=== PATIENT | female | born 1930 | race Caucasian/White ===

== ENCOUNTER 2017-08-02 13:19 | Inpatient (IN) | payer MEDICARE, BC ==
[2017-08-02] VITALS (7 sets, daily range): BP systolic 128–151; BP diastolic 61–80; PULSE 63–86; RESP 12–22; TEMP 97.6–98.5; O2SAT 95–99
[~2017-08-02] VITALS: Ht 170.2 cm; Wt 87.7 kg
--- NOTE | 2017-08-02 13:34 | PD ---
HPI Chief Complaint: Fall, altered mental status Time Seen by Provider: 13:29 Travel History International Travel<30 days: No Contact w/Intl Traveler<30days: No Traveled to known affect area: No History of Present Illness HPI 87-year-old elderly female currently living with her in an assisted care facility, here because she apparently had fallen between the toilet, and appears disoriented. It is unclear how long she was down. She currently is not able to give me much further history. Modifying Factors: None Associated Signs & Symptoms: Fall, altered mental status Risk Factors: Elderly PFSH Social History Tobacco Use: No Allergies-Medications (Allergen,Severity, Reaction): Coded Allergies: No Known Allergies (Unverified , 08/02/17) Reported Meds & Prescriptions Reported Meds & Active Scripts Active Reported Robitussin Cough Chest Congestion (Dextromethorphan-Guaifenesin) 10-200 Mg Cap 1 Cap PO Q6H PRN Mucinex DM (Dextromethorphan-Guaifenesin) 30-600 Mg Tab 1 Tab PO BID PRN Augmentin (Amoxicillin-Clavulanate) 500-125 mg Tab 500 Mg PO BID Macrobid (Nitrofurantoin Monoh/Nitrofur Macro) 100 Mg Cap 100 Mg PO BID Trazodone (Trazodone HCl) 50 Mg Tab 50 Mg PO HS Potassium Chloride ER (Potassium Chloride) 10 Meq Cap 10 Meq PO DAILY Lyrica (Pregabalin) 75 Mg Cap 75 Mg PO BID Losartan (Losartan Potassium) 100 Mg Tab 100 Mg PO DAILY Furosemide 20 Mg Tab 20 Mg PO DAILY Aspirin 81 Mg Chew 81 Mg CHEW DAILY Review of Systems ROS Limitations: Altered Mental Status Physical Exam Narrative GENERAL: Well-developed elderly white female patient currently in mild distress. Awake and oriented 3. SKIN: Focused skin assessment warm/dry. HEAD: Atraumatic. Normocephalic. EYES: Pupils equal and round. No scleral icterus. No injection or drainage. ENT: No nasal bleeding or discharge. Mucous membranes pink and moist. NECK: Trachea midline. No JVD. Supple. CARDIOVASCULAR: Regular rate and rhythm. No murmur appreciated. RESPIRATORY: No accessory muscle use. Clear to auscultation. Breath sounds equal bilaterally. GASTROINTESTINAL: Abdomen soft, non-tender, nondistended. Hepatic and splenic margins not palpable. Pelvis: Stable and nontender to palpation. EXTREMITIES: No clubbing, cyanosis, or edema. No joint tenderness, effusion, or edema noted. Left knee is flexed over pillow, nontender to palpation MUSCULOSKELETAL: No obvious deformities. No clubbing. No cyanosis. No edema. NEUROLOGICAL: Awake and alert. No obvious cranial nerve deficits. Motor grossly within normal limits. Normal speech. PSYCHIATRIC: Awake and not oriented. Insight and judgment poor. Data Data Last Documented VS Vital Signs Date Time Temp Pulse Resp B/P (MAP) Pulse Ox O2 Delivery O2 Flow Rate FiO2 08/02/17 15:05 86 12 144/75 (98) 98 Room Air 08/02/17 13:47 98.5 Orders Orders Electrocardiogram (08/02/17 13:29) Ammonia (08/02/17 13:29) Complete Blood Count With Diff (08/02/17 13:29) Comprehensive Metabolic Panel (08/02/17 13:29) Creatine Kinase (Cpk) (08/02/17 13:29) Prothrombin Time / Inr (Pt) (08/02/17 13:29) Act Partial Throm Time (Ptt) (08/02/17 13:29) Troponin I (08/02/17 13:29) Thyroid Stimulating Hormone (08/02/17 13:29) Urinalysis - C+S If Indicated (08/02/17 13:29) Lactic Acid Sepsis Protocol (08/02/17 13:29) Blood Culture (08/02/17 13:29) Chest, Single Ap (08/02/17 13:29) Ct Brain W/O Iv Contrast(Rout) (08/02/17 13:29) Blood Glucose (08/02/17 13:29) Ecg Monitoring (08/02/17 13:29) Iv Access Insert/Monitor (08/02/17 13:29) Oximetry (08/02/17 13:29) Pelvis, Ap Only (Routine) (08/02/17 13:29) Knee, Ltd (1 Or 2vws) (08/02/17 13:29) Aspirin (Aspirin) (08/02/17 15:15) Aspirin Supp (Aspirin Supp) (08/02/17 15:45) Admit Order (Ed Use Only) (08/02/17 15:47) Labs Laboratory Tests Test 08/02/17 13:55 08/02/17 14:05 08/02/17 15:18 White Blood Count 6.0 TH/MM3 Red Blood Count 4.03 MIL/MM3 Hemoglobin 12.5 GM/DL Hematocrit 37.8 % Mean Corpuscular Volume 93.9 FL Mean Corpuscular Hemoglobin 31.1 PG Mean Corpuscular Hemoglobin Concent 33.1 % Red Cell Distribution Width 13.4 % Platelet Count 203 TH/MM3 Mean Platelet Volume 9.5 FL Neutrophils (%) (Auto) 63.5 % Lymphocytes (%) (Auto) 27.5 % Monocytes (%) (Auto) 6.8 % Eosinophils (%) (Auto) 1.7 % Basophils (%) (Auto) 0.5 % Neutrophils # (Auto) 3.8 TH/MM3 Lymphocytes # (Auto) 1.7 TH/MM3 Monocytes # (Auto) 0.4 TH/MM3 Eosinophils # (Auto) 0.1 TH/MM3 Basophils # (Auto) 0.0 TH/MM3 CBC Comment DIFF FINAL Differential Comment Urine Color YELLOW Urine Turbidity CLEAR Urine pH 6.0 Urine Specific [place] 1.006 Urine Protein NEG mg/dL Urine Glucose (UA) NEG mg/dL Urine Ketones NEG mg/dL Urine Occult Blood NEG Urine Nitrite NEG Urine Bilirubin NEG Urine Urobilinogen LESS THAN 2.0 MG/DL Urine Leukocyte Esterase NEG Urine RBC LESS THAN 1 /hpf Urine WBC LESS THAN 1 /hpf Microscopic Urinalysis Comment CATH-CULT NOT IND Blood Urea Nitrogen 22 MG/DL Creatinine 1.19 MG/DL Random Glucose 85 MG/DL Total Protein 8.0 GM/DL Albumin 3.7 GM/DL Calcium Level 9.5 MG/DL Alkaline Phosphatase 84 U/L Aspartate Amino Transf (AST/SGOT) 30 U/L Alanine Aminotransferase (ALT/SGPT) 57 U/L Total Bilirubin 0.6 MG/DL Sodium Level 138 MEQ/L Potassium Level 4.4 MEQ/L Chloride Level 106 MEQ/L Carbon Dioxide Level 24.7 MEQ/L Anion Gap 7 MEQ/L Estimat Glomerular Filtration Rate 43 ML/MIN Total Creatine Kinase 69 U/L Troponin I 0.14 NG/ML Thyroid Stimulating Hormone 3rd Gen 1.200 uIU/ML Lactic Acid Level 1.8 mmol/L Ammonia 24 MCMOL/L [facility] Medical Decision Making Medical Screen Exam Complete: Yes Emergency Medical Condition: Yes Medical Record Reviewed: Yes Interpretation(s) EKG shows NSR, no ST elevation or depression, and no arrhythmias. No significant T-wave inversions. There is a notable first-degree AV block. Laboratory Tests Test 08/02/17 13:55 08/02/17 14:05 08/02/17 15:18 Blood Urea Nitrogen 22 MG/DL (7-18) Creatinine 1.19 MG/DL (0.50-1.00) Alanine Aminotransferase (ALT/SGPT) 57 U/L (10-53) Estimat Glomerular Filtration Rate 43 ML/MIN (>89) Troponin I 0.14 NG/ML (0.02-0.05) Last 24 hours Impressions Pelvis X-Ray 08/02/171328 Signed Impressions: Service Date/Time: July 14:41 - CONCLUSION: No acute disease. Kristopher Go MD Knee X-Ray 08/02/171328 Signed Impressions: Service Date/Time: July 14:44 - CONCLUSION: Advanced arthropathy without evidence of acute fracture or joint effusion. Kristopher Go MD Head CT 08/02/171328 Signed Impressions: Service Date/Time: July 14:18 - CONCLUSION: Small wedge-shaped hypodensity in the right parietal lobe which may represent acute to subacute infarct. No evidence of acute hemorrhage or edema. Otherwise normal exam. Kristopher Go MD Chest X-Ray 08/02/179 Signed Impressions: Service Date/Time: July 14:52 - CONCLUSION: Vascular congestion in central interstitial prominence Akil Goldsmith MD Differential Diagnosis Fall, altered mental status: Metabolic issues versus dehydration versus sepsis versus acute intracranial injuries Narrative Course CAT scan shows signs of a acute right parietal ischemia. Aspirin was given to her [place]. It is very difficult to do a good neurological exam because she is not following commands. Lab work otherwise shows mildly elevated troponin. At this point, my plan would be to admit her for further evaluation and treatment. Case was discussed with Dr. Mckinley for admission. Diagnosis Primary Impression: Altered mental status Additional Impressions: CVA (cerebral vascular accident) Elevated troponin Admitting Information Admitting Physician Requests: Admit Scotty Christina MD Aug 02, 2017 13:34
[2017-08-02] MEDS ORDERED: FURO20TA PO (13:44)
[2017-08-02] MEDS ORDERED: LOSA100T PO (13:44)
[2017-08-02] MEDS ORDERED: POTA10CA PO (13:44)
[2017-08-02] MEDS ORDERED: ASPI-516 CHEW (13:44)
[2017-08-02] MEDS ORDERED: TRAZ50TA12 PO (13:44)
[2017-08-02] MEDS ORDERED: LYRI75CA PO (13:44)
[2017-08-02] MEDS ORDERED: DEXT1CAP5 PO (13:59)
[2017-08-02] MEDS ORDERED: AUGM500T7 PO (13:59)
[2017-08-02] MEDS ORDERED: MACR100C2 PO (13:59)
[2017-08-02] MEDS ORDERED: HUMIBIDDM PO (13:59)
[2017-08-02 14:31] LABS: AUTOMATED NEUTROPHIL # 3.8 TH/MM3 (1.8-7.7); BASOPHIL % 0.5 % (0.0-2.0); EOSINOPHIL # 0.1 TH/MM3 (0-0.4); EOSINOPHIL % 1.7 % (0.0-4.0); HEMATOCRIT 37.8 % (35.0-46.0); HEMOGLOBIN 12.5 GM/DL (11.6-15.3); LYMPH % 27.5 % (9.0-44.0); LYMPHOCYTE # 1.7 TH/MM3 (1.0-4.8); MEAN CELL VOLUME 93.9 FL (80.0-100.0); MEAN CORPUSCULAR HEMOGLOBIN 31.1 PG (27.0-34.0); MEAN CORPUSCULAR HGB CONC 33.1 % (32.0-36.0); MEAN PLATELET VOLUME 9.5 FL (7.0-11.0); MONO % 6.8 % (0.0-8.0); MONOCYTE # 0.4 TH/MM3 (0-0.9); NEUT % 63.5 % (16.0-70.0); PLATELET COUNT 203 TH/MM3 (150-450); RED BLOOD COUNT 4.03 MIL/MM3 (4.00-5.30); RED CELL DISTRIBUTION WIDTH 13.4 % (11.6-17.2)
[2017-08-02 14:32] LABS: BILIRUBIN, URINE NEG (NEG); BLOOD, URINE NEG (NEG); GLUCOSE,URINE NEG (NEG); KETONE, URINE NEG (NEG); NITRITE,URINE NEG (NEG); URINE COLOR YELLOW (YELLW/STRAW); URINE LEUKOCYTE ESTERASE NEG (NEG)
--- NOTE | 2017-08-02 14:44 | RADRPT ---
EXAM DATE/TIME: 08/02/2017 14:18 [facility] COMPARISON: No previous studies available for comparison. INDICATIONS : Found on floor with altered mental status RADIATION DOSE: 32.21 CTDIvol (mGy) MEDICAL HISTORY : Hypertension. SURGICAL HISTORY : None. ENCOUNTER: Initial ACUITY: 1 day PAIN SCALE: Non-responsive LOCATION: cranial TECHNIQUE: Multiple contiguous axial images were obtained of the head. Using automated exposure control and adj ustment of the mA and/or kV according to patient size, radiation dose was kept as low as reasonably a chievable to obtain optimal diagnostic quality images. DICOM format image data is available electro nically for review and comparison. FINDINGS: CEREBRUM: A small wedge-shaped area of hypodensity is identified posteriorly in the right parietal lobe. The sc rew in his referral is unremarkable. There is no evidence of acute hemorrhage, edema or mass effect. POSTERIOR FOSSA: The cerebellum and brainstem are intact. The 4th ventricle is midline. The cerebellopontine angle i s unremarkable. EXTRACRANIAL: The visualized portion of the orbits is intact. SKULL: The calvaria is intact. No evidence of skull fracture. CONCLUSION: Small wedge-shaped hypodensity in the right parietal lobe which may represent acute to subacute infar ct. No evidence of acute hemorrhage or edema. Otherwise normal exam. Kristopher Go MD on August 02, 2017 at 14:39 Board Certified Radiologist. This report was verified electronically.
[2017-08-02 14:47] LABS: ALBUMIN 3.7 GM/DL (3.4-5.0); AST (GOT) 30 U/L (15-37); BICARBONATE 24.7 MEQ/L (21.0-32.0); BLOOD UREA NITROGEN 22 MG/DL (7-18); CALCIUM 9.5 MG/DL (8.5-10.1); CHLORIDE 106 MEQ/L (98-107); CREATININE 1.19 MG/DL (0.50-1.00); GLOMERULAR FILTRATION RATE 43 ML/MIN (>89); GLUCOSE,RANDOM 85 MG/DL (74-106); SODIUM (NA) 138 MEQ/L (136-145)
[2017-08-02 14:48] LABS: ALT (GPT) 57 U/L (10-53)
[2017-08-02 14:58] LABS: ALKALINE PHOSPHATASE 84 U/L (45-117); TOTAL BILIRUBIN ADULT 0.6 MG/DL (0.2-1.0); TROPONIN I 0.14 NG/ML (0.02-0.05)
--- NOTE | 2017-08-02 15:06 | RADRPT ---
EXAM DATE/TIME: 08/02/2017 14:52 [facility] COMPARISON: No previous studies available for comparison. INDICATIONS : Syncope. MEDICAL HISTORY : Hypertension. Arthritis. SURGICAL HISTORY : None. ENCOUNTER: Initial ACUITY: 1 day PAIN SCORE: 0/10 LOCATION: Bilateral chest FINDINGS: Central vascular congestion and interstitial prominence noted. No evidence of lobar consolidation or significant effusion. Heart size upper limits of normal with grossly satisfactory mediastinal contour s. CONCLUSION: Vascular congestion in central interstitial prominence Akil Goldsmith MD on August 02, 2017 at 15:03 Board Certified Radiologist. This report was verified electronically.
--- NOTE | 2017-08-02 15:07 | RADRPT ---
EXAM DATE/TIME: 08/02/2017 14:41 [facility] COMPARISON: No previous studies available for comparison. INDICATIONS : Pelvic pain post fall today. MEDICAL HISTORY : Hypertension. Arthritis. SURGICAL HISTORY : None. ENCOUNTER: Initial ACUITY: 1 day PAIN SCORE: 2/10 LOCATION: pelvis FINDINGS: A single frontal view of the pelvis demonstrates no evidence of fracture. The bony pelvic ring is in tact. Bony mineralization is normal. The soft tissues are intact. CONCLUSION: No acute disease. Kristopher Go MD on August 02, 2017 at 15:05 Board Certified Radiologist. This report was verified electronically.
--- NOTE | 2017-08-02 15:08 | RADRPT ---
EXAM DATE/TIME: 08/02/2017 14:44 [facility] COMPARISON: No previous studies available for comparison. INDICATIONS : Left knee pain after falling today. MEDICAL HISTORY : Hypertension. Arthritis. SURGICAL HISTORY : None. ENCOUNTER: Initial ACUITY: 1 day PAIN SCORE: 3/10 LOCATION: Left knee. FINDINGS: Severe 2 compartment arthropathy is noted. There is marked joint space narrowing, subchondral scleros is and marginal spurring involving the medial joint compartment and patellofemoral joint. There is sl ight varus deformity. There is no evidence of acute fracture or joint effusion. CONCLUSION: Advanced arthropathy without evidence of acute fracture or joint effusion. Kristopher Go MD on August 02, 2017 at 15:05 Board Certified Radiologist. This report was verified electronically.
[2017-08-02] MEDS ORDERED: ASPIRIN 325 MG TAB PO ONE (15:15)
[2017-08-02] MEDS ORDERED: ASPIRIN 300 MG SUPP RECTAL ONE (15:45)
[2017-08-02 15:58] LABS: INTERNATIONAL NORMALIZED RATIO 1.1 RATIO; PROTHROMBIN TIME - PATIENT 11.2 SEC (9.8-11.6)
[2017-08-02] MEDS ORDERED: GLUCAGON 1 MG/ML VIAL OTHER PRN (17:15)
[2017-08-02] MEDS ORDERED: ENALAPRILAT 1.25 MG/ML VIAL IV PUSH PRN (17:15)
[2017-08-02] MEDS ORDERED: DEXTROSE 50% IN WATER 50 ML VIAL(D50) IV PUSH PRN (17:15)
[2017-08-02] MEDS ORDERED: LABETALOL HCL 100 MG/20 ML VIAL IV PUSH PRN (17:15)
[2017-08-02] MEDS: HEPARIN SODIUM - SQ 10,000 UNITS/ML VIAL SQ SCH (17:23)
[2017-08-02] MEDS ORDERED: HEPARIN SODIUM - SQ 10,000 UNITS/ML VIAL SQ SCH (19:00)
[2017-08-02] MEDS ORDERED: MAGNESIUM HYDROXIDE SUSP 30 ML CUP PO PRN (19:00)
[2017-08-02] MEDS ORDERED: SENNOSIDES 8.6 MG TAB PO PRN (19:00)
[2017-08-02] MEDS ORDERED: NALOXONE HCL 0.4 MG/ML AMP IV PUSH PRN (19:00)
--- NOTE | 2017-08-02 19:47 | RADRPT ---
EXAM DATE/TIME: 08/02/2017 19:01 [facility] COMPARISON: No previous studies available for comparison. INDICATIONS : CVA. MEDICAL HISTORY : Hypertension. SURGICAL HISTORY : Total knee replacement, right. ENCOUNTER: Initial ACUITY: 1 day PAIN SCORE: 0/10 LOCATION: Head. TECHNIQUE: Multiplanar, multisequence MRI of the brain was performed without contrast. FINDINGS: There are acute right sided posterior infarcts measuring up to 2.7 x 1.1 cm in the right parieto-occi pital region and 3 cm x 1.4 cm in the right occipital lobe. No mass effect or shift. No definite hemo rrhage. No hydrocephalus. No abnormal extra-axial fluid. CONCLUSION: 1. 2 small infarcts in the right parieto-occipital region with measurements given above. No hemorrhag e or significant mass effect and mild white matter ischemic changes. Bharath Burns MD on August 02, 2017 at 19:42 Board Certified Radiologist. This report was verified electronically.
--- NOTE | 2017-08-02 19:55 | RADRPT ---
EXAM DATE/TIME: 08/02/2017 19:01 [facility] COMPARISON: No previous studies available for comparison. INDICATIONS : Stroke. MEDICAL HISTORY : Hypertension. SURGICAL HISTORY : Total knee replacement, right. ENCOUNTER: Initial ACUITY: 1 day PAIN SCORE: 0/10 LOCATION: Head. Please note a normal MRA of the brain does not entirely exclude the possibility of a small aneurysm, nor the possibility of distal intracranial vessel disease. TECHNIQUE: 3D time of flight MRA was performed. Source images, multiplanar STS MIP, and 3D volume MIP reconstru ctions were reviewed. FINDINGS: There is occlusion or high-grade stenosis of the distal right posterior cerebral artery. Exam is degr aded by motion artifact. There is flow in the anterior and middle cerebral arteries and left posterio r shoulder artery. Some flow is present in the distal internal carotid arteries and basilar artery al though also degraded by motion. CONCLUSION: 1. 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 Exam degraded by elliot batres. Bharath Burns MD on August 02, 2017 at 19:51 Board Certified Radiologist. This report was verified electronically.
[2017-08-02 20:20] LABS: TROPONIN I 1.55 NG/ML (0.02-0.05)
[2017-08-02] MEDS: INSULIN ASPART SUPPLEMENTAL SCALE SQ SCH (21:17)
--- NOTE | 2017-08-02 22:48 | RADRPT ---
EXAM DATE/TIME: 08/02/2017 22:09 [facility] COMPARISON: No previous studies available for comparison. INDICATIONS : Cerebrovascular accident. MEDICAL HISTORY : Hypertension. Arthritis. Carpal tunnel. SURGICAL HISTORY : Unable to obtain. ENCOUNTER: Initial ACUITY: 1 day PAIN SCORE: 0/10 LOCATION: Bilateral neck PEAK SYSTOLIC VELOCITIES (cm/sec): ICA/CCA RATIO: Right: 0.7 Left: 1.3 ICA: Right: 78 Left: 101 CCA: Right: 110 Left: 80 ECA: Right: 110 Left: 88 VERTEBRAL: Right: 42 antegrade Left: 44 antegrade Elevated flow velocities and ICA/CCA ratios have been found to correlate with increased degrees of vessel stenosis, calculated as percentage of diameter relative to a normal segment of distal ICA/CCA FINDINGS: RIGHT CAROTID: No significant stenosis is visualized. The waveforms are within normal limits. LEFT CAROTID: No significant stenosis is visualized. The waveforms are within normal limits. VERTEBRAL ARTERIES: Antegrade flow is seen in both vertebral arteries. MISCELLANEOUS: None. CONCLUSION: 1. Mild plaque without hemodynamically significant stenosis in the carotid arteries. Vertebral artery flow antegrade. Bharath Burns MD on August 02, 2017 at 22:46 Board Certified Radiologist. This report was verified electronically.
[2017-08-02] MEDS: DOCUSATE SODIUM 50 MG/SENNA 8.6 MG TAB PO SCH (22:50)
[2017-08-03 00:29] LABS: TROPONIN I 1.69 NG/ML (0.02-0.05)
[2017-08-03 00:45] VITALS: BP 151/70; PULSE 69; RESP 17; TEMP 98.4; O2SAT 97
[2017-08-03] MEDS: HEPARIN SODIUM - SQ 10,000 UNITS/ML VIAL SQ SCH (01:15)
[2017-08-03] MEDS ORDERED: HEPARIN SODIUM - IV 10,000 UNITS/10 ML VIAL IV PUSH ONE (01:45)
[2017-08-03] MEDS ORDERED: HEPARIN-D5W 25,000 U/250 ML 250 ML IV PRN (01:45)
--- NOTE | 2017-08-03 03:46 | HHI.HP ---
[facility] Primary Care Physician Unknown Admission Diagnosis Acute stroke/altered mental status/elevated troponin Diagnoses: Travel History International Travel<30 Days: No Contact w/Intl Traveler <30 Da: No Traveled to Known Affected Are: No History of Present Illness History from ER physician notes, and review of medical records. And nursing staff at the bedside. Patient is extremely poor historian. She answered yes to pretty much all the review of system. She initially told her nurse on medical floors that she was having pain in her head. Later when I ask her about this, she denies any pain. She then told me that she was having pain in her abdomen. However later she changed her mind and she states she is not sure. According to ER notes, patient and her lives at an assisted living facility. She had a fall and was looking disoriented. They were not sure how long she was down on the floor. Patient also is not following commands and neuro exam was extremely limited in ER. However further imaging workup done in ER revealed small wedge-shaped hypodensity in the right parietal lobe which may represent acute to subacute infarct. Patient was therefore admitted for workup of CVA. In the emergency room, patient also had mild elevation of troponin. Review of Systems ROS Limitations: Altered Mental Status, Poor Historian Past Family Social History Past Medical History Per EMR: Hypertension Arthritis Carpal tunnel syndrome Past Surgical History None per EMR Allergies: Coded Allergies: No Known Allergies (Unverified , 08/02/17) Family History Unknown Social History denies smoking/ etoh abuse/ drug abuse Physical Exam Vital Signs Vital Signs Date Time Temp Pulse Resp B/P (MAP) Pulse Ox O2 Delivery O2 Flow Rate FiO2 08/03/17 00:45 98.4 69 17 151/70 (97) 97 08/02/17 21:46 98 21 08/02/17 20:50 97.6 79 17 141/80 (100) 97 08/02/17 17:57 08/02/17 17:13 98 21 08/02/17 17:00 80 14 131/69 (89) 98 Room Air 08/02/17 16:00 84 22 151/63 (92) 99 Room Air 08/02/17 15:05 86 12 144/75 (98) 98 Room Air 08/02/17 13:47 98.5 63 16 128/61 (83) 95 Physical Exam GENERAL: This is a well-nourished, well-developed patient, in no apparent distress. That at times moaning saying she has pain at different places. SKIN: No rashes, ecchymoses or lesions. Cool and dry. HEAD: Atraumatic. Normocephalic. No temporal or scalp tenderness. EYES: Pupils equal round and reactive. Extraocular motions intact. No scleral icterus. No injection or drainage. ENT: Nose without bleeding, purulent drainage or septal hematoma. Airway patent. NECK: Trachea midline. No JVD . Supple, nontender, no meningeal signs. CARDIOVASCULAR: Regular rate and rhythm without murmurs, gallops, or rubs. RESPIRATORY: Clear to auscultation. Breath sounds equal bilaterally. No wheezes , rales, or rhonchi. GASTROINTESTINAL: Abdomen soft, non-tender, nondistended. No guarding. MUSCULOSKELETAL: Extremities without clubbing, cyanosis, or edema. No calf tenderness. NEUROLOGICAL: Awake and alert. No tongue deviation. Left facial droop questionable this is chronic. Normal shoulder shrug though weak bilaterally.. Unable to assess her strength since patient does not really follow commands. Normal speech. Laboratory Laboratory Tests Test 08/02/17 13:55 08/02/17 14:05 08/02/17 15:18 08/02/17 18:00 White Blood Count 6.0 Red Blood Count 4.03 Hemoglobin 12.5 Hematocrit 37.8 Mean Corpuscular Volume 93.9 Mean Corpuscular Hemoglobin 31.1 Mean Corpuscular Hemoglobin Concent 33.1 Red Cell Distribution Width 13.4 Platelet Count 203 Mean Platelet Volume 9.5 Neutrophils (%) (Auto) 63.5 Lymphocytes (%) (Auto) 27.5 Monocytes (%) (Auto) 6.8 Eosinophils (%) (Auto) 1.7 Basophils (%) (Auto) 0.5 Neutrophils # (Auto) 3.8 Lymphocytes # (Auto) 1.7 Monocytes # (Auto) 0.4 Eosinophils # (Auto) 0.1 Basophils # (Auto) 0.0 CBC Comment DIFF FINAL Differential Comment Urine Color YELLOW Urine Turbidity CLEAR Urine pH 6.0 Urine Specific [place] 1.006 Urine Protein NEG Urine Glucose (UA) NEG Urine Ketones NEG Urine Occult Blood NEG Urine Nitrite NEG Urine Bilirubin NEG Urine Urobilinogen LESS THAN 2.0 Urine Leukocyte Esterase NEG Urine RBC LESS THAN 1 Urine WBC LESS THAN 1 Microscopic Urinalysis Comment CATH-CULT NOT IND Blood Urea Nitrogen 22 Creatinine 1.19 Random Glucose 85 Total Protein 8.0 Albumin 3.7 Calcium Level 9.5 Alkaline Phosphatase 84 Aspartate Amino Transf (AST/SGOT) 30 Alanine Aminotransferase (ALT/SGPT) 57 Total Bilirubin 0.6 Sodium Level 138 Potassium Level 4.4 Chloride Level 106 Carbon Dioxide Level 24.7 Anion Gap 7 Estimat Glomerular Filtration Rate 43 Total Creatine Kinase 69 122 Troponin I 0.14 1.55 Thyroid Stimulating Hormone 3rd Gen 1.200 Lactic Acid Level 1.8 Ammonia 24 Prothrombin Time 11.2 Prothromb Time International Ratio 1.1 Activated Partial Thromboplast Time 23.8 Test 08/02/17 23:32 Total Creatine Kinase 138 Troponin I 1.69 Date/Time Source Procedure Growth Status 08/02/17 14:05 Blood Peripheral Aerobic Blood Culture Pending Received 08/02/17 14:05 Blood Peripheral Anaerobic Blood Culture Pending Received Result Diagram: 08/02/17 1355 08/02/17 1355 Imaging Last 48 hours Impressions Pelvis X-Ray 08/02/17 1329 Signed Impressions: Service Date/Time: July 14:41 - CONCLUSION: No acute disease. Kristopher Go MD Knee X-Ray 08/02/17 1329 Signed Impressions: Service Date/Time: July 14:44 - CONCLUSION: Advanced arthropathy without evidence of acute fracture or joint effusion. Kristopher Go MD Head CT 08/02/17 1329 Signed Impressions: Service Date/Time: July 14:18 - CONCLUSION: Small wedge-shaped hypodensity in the right parietal lobe which may represent acute to subacute infarct. No evidence of acute hemorrhage or edema. Otherwise normal exam. Kristopher Go MD Chest X-Ray 08/02/17 1329 Signed Impressions: Service Date/Time: July 14:52 - CONCLUSION: Vascular congestion in central interstitial prominence Akil Goldsmith MD Head Magnetic Resonance Angiography 08/02/17 Signed Impressions: Service Date/Time: July 19:01 - CONCLUSION: 1. 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 Exam degraded by motion. Bharath Burns MD Carotid Artery Ultrasound 08/02/17 Signed Impressions: Service Date/Time: July 22:09 - CONCLUSION: 1. Mild plaque without hemodynamically significant stenosis in the carotid arteries. Vertebral artery flow antegrade. Bharath Burns MD Brain MRI 08/02/17 Signed Impressions: Service Date/Time: July 19:01 - CONCLUSION: 1. 2 small infarcts in the right parieto-occipital region with measurements given above. No hemorrhage or significant mass effect and mild white matter ischemic changes. MD Chana Cordero VTE Risk Assessment Caprini VTE Risk Assessment: Mod/High Risk (score >= 2) Caprini Risk Assessment Model Point Value = 1 Point Value = 2 Point Value = 3 Point Value = 5 Age 41-60 Minor surgery BMI > 25 kg/m2 Swollen legs Varicose veins or History of unexplained or recurrent spontaneous Oral contraceptives or hormone replacement Sepsis (< 1 month) Serious lung disease, including pneumonia (< 1 month) Abnormal pulmonary function Acute myocardial infarction Congestive heart failure (< 1 month) History of inflammatory bowel disease Medical patient at bed rest Age 61-74 Arthroscopic surgery Major open surgery (> 45 min) Laparoscopic surgery (> 45 min) Malignancy Confined to bed (> 72 hours) Immobilizing plaster cast Central venous access Age >= 75 History of VTE Family history of VTE Factor V Leiden Prothrombin [id number] Lupus anticoagulant Anticardiolipin antibodies Elevated serum homocysteine Heparin-induced thrombocytopenia Other congenital or acquired thrombophilia Stroke (< 1 month) Elective arthroplasty Hip, pelvis, or leg fracture Acute spinal cord injury (< 1 month) Prophylaxis Regimen Total Risk Factor Score Risk Level Prophylaxis Regimen 0-1 Low Early ambulation 2 Moderate Order ONE of the following: *Sequential Compression Device (SCD) *Heparin 5000 units SQ BID 3-4 Higher Order ONE of the following medications: *Heparin 5000 units SQ TID *Enoxaparin/Lovenox 40 mg SQ daily (WT < 150 kg, CrCl > 30 mL/min) *Enoxaparin/Lovenox 30 mg SQ daily (WT < 150 kg, CrCl > 10-29 mL/min) *Enoxaparin/Lovenox 30 mg SQ BID (WT < 150 kg, CrCl > 30 mL/min) AND/OR *Sequential Compression Device (SCD) 5 or more Highest Order ONE of the following medications: *Heparin 5000 units SQ TID (Preferred with Epidurals) *Enoxaparin/Lovenox 40 mg SQ daily (WT < 150 kg, CrCl > 30 mL/min) *Enoxaparin/Lovenox 30 mg SQ daily (WT < 150 kg, CrCl > 10-29 mL/min) *Enoxaparin/Lovenox 30 mg SQ BID (WT < 150 kg, CrCl > 30 mL/min) AND *Sequential Compression Device (SCD) Assessment and Plan Assessment and Plan Impression: CVA. Brain MRI showing 2 small infarcts in the right parieto-occipital region. No hemorrhage. No mass effect. Elevated troponin/non-ST elevation NE History of hypertension Plan: Permissive hypertension. Echocardiogram. Carotid sono. Personally reviewed. No hemodynamically significant stenosis. Head CT brain MRI personally reviewed. 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 Neurology consult. Aspirin 325 mg by mouth daily. Rehabilitation medicine consult. Speech and swallow evaluation. Start patient on heparin drip. Cardiology consult. DVT prophylaxis on heparin drip. Discussed Condition With Patient, her nurse Physician Certification 2 Midnight Certification Type: Admission for Inpatient Services Order for Inpatient Services The services are ordered in accordance with Medicare regulations or non- Medicare payer requirements, as applicable. In the case of services not specified as inpatient-only, they are appropriately provided as inpatient services in accordance with the 2-midnight benchmark. Estimated LOS (days): 3 days is the estimated time the patient will need to remain in the hospital, assuming treatment plan goals are met and no additional complications. Post-Hospital Plan: Not yet determined Elaine Reynoso MD Aug 03, 2017 03:46
[2017-08-03 04:54] VITALS: BP 148/77; PULSE 79; RESP 17; TEMP 98.6; O2SAT 97
[2017-08-03] MEDS: PANTOPRAZOLE SODIUM 40 MG VIAL IV PUSH SCH ×2 (05:23→16:40)
[2017-08-03 07:15] LABS: AUTOMATED NEUTROPHIL # 5.5 TH/MM3 (1.8-7.7); BASOPHIL % 0.5 % (0.0-2.0); EOSINOPHIL # 0.1 TH/MM3 (0-0.4); EOSINOPHIL % 0.8 % (0.0-4.0); HEMATOCRIT 36.4 % (35.0-46.0); HEMOGLOBIN 12.4 GM/DL (11.6-15.3); LYMPH % 23.1 % (9.0-44.0); LYMPHOCYTE # 1.9 TH/MM3 (1.0-4.8); MEAN CELL VOLUME 93.4 FL (80.0-100.0); MEAN CORPUSCULAR HEMOGLOBIN 31.8 PG (27.0-34.0); MEAN PLATELET VOLUME 9.6 FL (7.0-11.0); MONO % 7.3 % (0.0-8.0); MONOCYTE # 0.6 TH/MM3 (0-0.9); NEUT % 68.3 % (16.0-70.0); PLATELET COUNT 200 TH/MM3 (150-450); RED CELL DISTRIBUTION WIDTH 13.4 % (11.6-17.2); WHITE BLOOD COUNT 8.1 TH/MM3 (4.0-11.0)
[2017-08-03 07:39] LABS: BICARBONATE 23.2 MEQ/L (21.0-32.0); CALCIUM 9.2 MG/DL (8.5-10.1); CREATININE 1.01 MG/DL (0.50-1.00)
[2017-08-03 07:43] LABS: CHOLESTEROL/ HDL RATIO 2.56 RATIO; HDL CHOLESTEROL 47.1 MG/DL (40.0-60.0)
[2017-08-03] MEDS ORDERED: HEPARIN SODIUM - IV 10,000 UNITS/10 ML VIAL IV PUSH PRN ×2 (07:45)
[2017-08-03 08:00] LABS: TROPONIN I 1.56 NG/ML (0.02-0.05)
[2017-08-03] MEDS: INSULIN ASPART SUPPLEMENTAL SCALE SQ SCH ×4 (08:00→21:00)
[2017-08-03] MEDS ORDERED: NITROGLYCERIN 0.4 MG SL 25 TABS/BTL SL PRN (08:30)
[2017-08-03] MEDS ORDERED: MORPHINE SULFATE 4 MG/ML INJ IV PUSH PRN (08:30)
[2017-08-03 09:06] VITALS: BP 147/85; PULSE 74; RESP 16; TEMP 98; O2SAT 97
[2017-08-03] MEDS: DOCUSATE SODIUM 50 MG/SENNA 8.6 MG TAB PO SCH ×2 (10:11→21:00)
[2017-08-03] MEDS: ASPIRIN 325 MG TAB PO SCH (10:12)
--- NOTE | 2017-08-03 11:20 | PD.CONS ---
Consult Service Palliative Care Consult Requested By Dr. Reynoso Primary Care Physician Unknown Reason for Consultation a. To assist with evaluation and management of symptoms including: Pain, confusion b. To assist medical decision maker(s) with: better understanding of current medical conditions; weighing benefits/burdens of medical treatment options; making medical treatment decisions. HPI History of Present Illness This is an 87-year-old female residing at [facility] with her who suffered a fall at the facility. She had apparently fallen next to the toilet and had been down for an unknown period of time. The patient herself is not able to give history, she is confused and repeats words over and over. She says she does not feel well but denies headache, stomachache, musculoskeletal pain, nausea. She does state that her stomach is the source of her discomfort but states that it "gets her riled up". She denies pain to palpation and denies that she feels like she could vomit. She is oriented to self only, does not know where she is, why she is here nor have any idea of what month or year it might be. ED course: * Laboratory: WBC 6.0, hemoglobin 12.5, hematocrit 37.8, platelets 203, sodium 138, potassium 4.4, BUN 22, creatinine 1.19, random glucose 85, alkaline phosphatase 84, AST 30, ALT 57, total bilirubin 0.6, troponin 0 0.14, TSH 1.20, lactic acid 1.8, ammonia 24. Urinalysis is negative. * Radiology: Chest x-ray shows vascular congestion in central interstitial prominence. Head CT shows small wedge-shaped hypodensity in the right parietal lobe possibly representing acute to subacute infarct with no evidence of acute hemorrhage or edema. Knee x-ray shows advanced arthropathy without evidence of acute fracture or joint effusion. Pelvis x-ray no acute disease. * Electrocardiogram: Shows normal sinus rhythm with no significant ST changes. Subsequent troponin shows levels that increased from 0.14 to 1.55, 1.69, 1.56. Cholesterol panel shows total cholesterol 121, HDL 47.1, LDL 61, triglycerides 67. Brain MRI shows acute right-sided posterior infarcts measuring up to 2.7 x 1.1 cm in the right parieto-occipital region in 3 cm x 1.4 cm in the right occipital lobe with no mass-effect or shift, no definite hemorrhage no hydrocephalus and no abnormal extra-axial fluid. Carotid ultrasound shows mild plaque without hemodynamically significant stenosis in the carotid arteries and antegrade vertebral artery flow. MRA of the brain showed occlusion or high- grade stenosis of the right distal posterior cerebral artery. Degradation by motion artifact was noted. Positive flow in the anterior and middle cerebral arteries and left posterior shoulder artery. Some flow is present in the distal internal carotid arteries and basilar artery although also degraded by motion. Upon examination this is an well nourished, well developed, elderly female in soft wrist restraints, not responding to questions. She appears in mild distress but cannot identify a point of discomfort. When asked if she knew where she was she started to repeat syllables but was unable to answer the question. Right ear shows a small bruise with small amount of oozing blood in the auricle. Call placed to her daughter to obtain further information. Daughter informs me that she is on her way to coal picker her father and come to the hospital and will meet me here. . Function/Cognitive Trajectory She had previously been independent with ADLs to include managing her own money and writing checks. She was ambulatory with a walker but her daughter did note shuffling gait. She resides in an [facility] with her . This is an acute decline. . Review of Systems ROS Limitations: Clinical Condition (Patient is nonverbal and unable to provide their own ROS. 10 part ROS taken as best as possible from medical record and available family.), Altered Mental Status, Speech Impaired Constitutional: COMPLAINS OF: Generalized weakness Neurologic: COMPLAINS OF: Speech Problems (Expressive aphasia) Psychiatric: COMPLAINS OF: Confusion Past Family Social History Coded Allergies: No Known Allergies (Unverified , 08/02/17) Past Medical History Vertigo Hypertension Arthritis Carpal tunnel syndrome Chronic sinusitis . Past Surgical History None per EMR Reported Medications Reported Meds & Active Scripts Active Reported Robitussin Cough Chest Congestion (Dextromethorphan-Guaifenesin) 10-200 Mg Cap 1 Cap PO Q6H PRN Mucinex DM (Dextromethorphan-Guaifenesin) 30-600 Mg Tab 1 Tab PO BID PRN Augmentin (Amoxicillin-Clavulanate) 500-125 mg Tab 500 Mg PO BID Macrobid (Nitrofurantoin Monoh/Nitrofur Macro) 100 Mg Cap 100 Mg PO BID Trazodone (Trazodone HCl) 50 Mg Tab 50 Mg PO HS Potassium Chloride ER (Potassium Chloride) 10 Meq Cap 10 Meq PO DAILY Lyrica (Pregabalin) 75 Mg Cap 75 Mg PO BID Losartan (Losartan Potassium) 100 Mg Tab 100 Mg PO DAILY Furosemide 20 Mg Tab 20 Mg PO DAILY Aspirin 81 Mg Chew 81 Mg CHEW DAILY . Current Medications Medications (Trade) Dose Ordered Sig/Harlan Route Start Time Stop Time Status Last Admin (Vasotec Inj) 1.25 mg Q4H PRN IV PUSH 08/02/17 17:15 (Trandate Inj) 10 mg Q2H PRN IV PUSH 08/02/17 17:15 (Aspirin) 325 mg DAILY PO 08/03/17 09:00 08/03/17 10:12 (NovoLOG SUPPLEMENTAL SCALE) 1 ACHS SQ 08/02/17 21:00 (D50w (Vial) Inj) 50 ml UNSCH PRN IV PUSH 08/02/17 17:15 (Glucagon Inj) 1 mg UNSCH PRN OTHER 08/02/17 17:15 (Heparin Inj) 5,000 units Q8H SQ 08/02/17 17:15 Future Hold 08/02/17 17:23 (Tylenol) 650 mg Q4H PRN PO 08/02/17 19:00 (Zofran Inj) 4 mg Q6H PRN IVP 08/02/17 19:00 (Heparin Inj) 5,000 units Q8H SQ 08/02/17 19:00 Future Hold (Narcan Inj) 0.4 mg UNSCH PRN IV PUSH 08/02/17 19:00 (Nan-Colace) 1 tab BID PO 08/02/17 21:00 08/03/17 10:11 (Milk Of Magnesia Liq) 30 ml Q12H PRN PO 08/02/17 19:00 (Senokot) 17.2 mg Q12H PRN PO 08/02/17 19:00 (Heparin Inj) 5,000 units UNSCH PRN IV PUSH 08/03/17 07:45 (Heparin Inj) 2,500 units UNSCH PRN IV PUSH 08/03/17 07:45 Heparin Sodium/ Dextrose 250 ml @ 8 mls/hr TITRATE PRN IV 08/03/17 01:45 08/03/17 02:32 (Protonix Inj) 40 mg Q12H IV PUSH 08/03/17 06:00 08/03/17 05:23 (Nitrostat Sl) 0.4 mg Q5M PRN SL 08/03/17 08:30 (Morphine Inj) 1 mg Q30M PRN IV PUSH 08/03/17 08:30 . Family History Both parents had multiple CVAs. Mother in her 90's, dad in his 80s. Both were bedbound for some time before they . . Substance Use Tobacco: Never smoked. Alcohol: Never used alcohol. Prescription med abuse: No history. Illicits: No history. . Psychosocial History Born in [facility], 1 of 10 children. She finished school, and raised her children there. She has been to her for 70 years. 5 years ago they moved to [place] after many years of snowbirding between both [facility]. She and her currently live together in an [facility]. . Spiritual/Cultural Factors They are seventh day Hindu. . Living Will: Copy in medical record Health Care Surrogate: Copy in medical record Durable Power of Lgsw: Copy in medical record Health Care Surrogate(s): Their daughter, Brisa Newton is their healthcare surrogate and POA. . Documented care wishes: Standard Living Will verbiage. . Today's verbally stated goals: Patient is unable to state her goals. . Family/friends goals: Spoke with her daughter who is a nurse and the daughter's , who is a retired ED physician. Further conference was held with both of her brothers, Marin and Tobin and it was jointly decided that no aggressive interventions should be used. They have requested a DO NOT RESUSCITATE status. . Ethical and Legal Issues None noted. . Physical Exam Vital Signs Date Time Temp Pulse Resp B/P (MAP) Pulse Ox O2 Delivery O2 Flow Rate FiO2 08/03/17 04:54 98.6 79 17 148/77 (100) 97 08/03/17 00:45 98.4 69 17 151/70 (97) 97 08/02/17 21:46 98 21 08/02/17 20:50 97.6 79 17 141/80 (100) 97 08/02/17 17:57 08/02/17 17:13 98 21 08/02/17 17:00 80 14 131/69 (89) 98 Room Air 08/02/17 16:00 84 22 151/63 (92) 99 Room Air 08/02/17 15:05 86 12 144/75 (98) 98 Room Air 08/02/17 13:47 98.5 63 16 128/61 (83) 95 . Exam CONSTITUTIONAL/GENERAL: This is an adequately nourished patient, in no apparent distress. TUBES/LINES/DRAINS: PIV LFA SKIN: No jaundice, rashes, or lesions. Ecchymoses on upper extremities. No wounds seen anteriorly. Skin temperature appropriate. Not diaphoretic. HEAD: Atraumatic. Normocephalic. EYES: Pupils equal and round and reactive. Extraocular motions intact. No scleral icterus. No injection or drainage. Fundi not examined. ENT: Hearing grossly normal. Nose without bleeding or purulent drainage. Throat without visible erythema, exudates, masses, or lesions. Right ear with slight bruising and small laceration with minimal sanguinous drainage. NECK: Trachea midline. Supple, nontender. No palpable thyroid enlargement or nodularity. CARDIOVASCULAR: Regular rate and rhythm without murmurs, gallops, or rubs. No JVD. Peripheral pulses symmetric. RESPIRATORY/CHEST: Symmetric, unlabored respirations. Clear to auscultation. Breath sounds equal bilaterally. No wheezes, rales, or rhonchi. GASTROINTESTINAL: Abdomen soft, non-tender, nondistended. No hepato-splenomegaly , or palpable masses. No guarding. Bowel sounds present. GENITOURINARY: Without palpable bladder distension. MUSCULOSKELETAL: Extremities without clubbing, cyanosis, or edema. No joint tenderness or effusion noted. No calf tenderness. No mottling or clubbing. LYMPHATICS: No palpable cervical or supraclavicular adenopathy. NEUROLOGICAL: Awake and alert. Expressive aphasia, repeating syllables, word salad, unable to recall information given within the prior minute. PSYCHIATRIC: Anxious, cooperative. . Diagnostic Tests Laboratory Laboratory Tests Test 08/02/17 13:55 08/02/17 14:05 08/02/17 15:18 08/02/17 18:00 White Blood Count 6.0 TH/MM3 (4.0-11.0) Red Blood Count 4.03 MIL/MM3 (4.00-5.30) Hemoglobin 12.5 GM/DL (11.6-15.3) Hematocrit 37.8 % (35.0-46.0) Mean Corpuscular Volume 93.9 FL (80.0-100.0) Mean Corpuscular Hemoglobin 31.1 PG (27.0-34.0) Mean Corpuscular Hemoglobin Concent 33.1 % (32.0-36.0) Red Cell Distribution Width 13.4 % (11.6-17.2) Platelet Count 203 TH/MM3 (150-450) Mean Platelet Volume 9.5 FL (7.0-11.0) Neutrophils (%) (Auto) 63.5 % (16.0-70.0) Lymphocytes (%) (Auto) 27.5 % (9.0-44.0) Monocytes (%) (Auto) 6.8 % (0.0-8.0) Eosinophils (%) (Auto) 1.7 % (0.0-4.0) Basophils (%) (Auto) 0.5 % (0.0-2.0) Neutrophils # (Auto) 3.8 TH/MM3 (1.8-7.7) Lymphocytes # (Auto) 1.7 TH/MM3 (1.0-4.8) Monocytes # (Auto) 0.4 TH/MM3 (0-0.9) Eosinophils # (Auto) 0.1 TH/MM3 (0-0.4) Basophils # (Auto) 0.0 TH/MM3 (0-0.2) CBC Comment DIFF FINAL Differential Comment Urine Color YELLOW (YELLW/STRAW) Urine Turbidity CLEAR (CLEAR) Urine pH 6.0 (5.0-8.5) Urine Specific [place] 1.006 (1.002-1.035) Urine Protein NEG mg/dL (NEG-TRACE) Urine Glucose (UA) NEG mg/dL (NEG) Urine Ketones NEG mg/dL (NEG) Urine Occult Blood NEG (NEG) Urine Nitrite NEG (NEG) Urine Bilirubin NEG (NEG) Urine Urobilinogen LESS THAN 2.0 MG/DL (LESS Urine Leukocyte Esterase NEG (NEG) Urine RBC LESS THAN 1 /hpf (0-3) Urine WBC LESS THAN 1 /hpf (0-5) Microscopic Urinalysis Comment CATH-CULT NOT IND Blood Urea Nitrogen 22 MG/DL (7-18) Creatinine 1.19 MG/DL (0.50-1.00) Random Glucose 85 MG/DL (74-106) Total Protein 8.0 GM/DL (6.4-8.2) Albumin 3.7 GM/DL (3.4-5.0) Calcium Level 9.5 MG/DL (8.5-10.1) Alkaline Phosphatase 84 U/L (45-117) Aspartate Amino Transf (AST/SGOT) 30 U/L (15-37) Alanine Aminotransferase (ALT/SGPT) 57 U/L (10-53) Total Bilirubin 0.6 MG/DL (0.2-1.0) Sodium Level 138 MEQ/L (136-145) Potassium Level 4.4 MEQ/L (3.5-5.1) Chloride Level 106 MEQ/L (98-107) Carbon Dioxide Level 24.7 MEQ/L (21.0-32.0) Anion Gap 7 MEQ/L (5-15) Estimat Glomerular Filtration Rate 43 ML/MIN (>89) Total Creatine Kinase 69 U/L (26-192) 122 U/L (26-192) Troponin I 0.14 NG/ML (0.02-0.05) 1.55 NG/ML (0.02-0.05) Thyroid Stimulating Hormone 3rd Gen 1.200 uIU/ML (0.358-3.740) Lactic Acid Level 1.8 mmol/L (0.4-2.0) Ammonia 24 MCMOL/L (11-32) Prothrombin Time 11.2 SEC (9.8-11.6) Prothromb Time International Ratio 1.1 RATIO Activated Partial Thromboplast Time 23.8 SEC (24.3-30.1) Test 08/02/17 23:32 08/03/17 06:43 Total Creatine Kinase 138 U/L (26-192) 145 U/L (26-192) Troponin I 1.69 NG/ML (0.02-0.05) 1.56 NG/ML (0.02-0.05) White Blood Count 8.1 TH/MM3 (4.0-11.0) Red Blood Count 3.90 MIL/MM3 (4.00-5.30) Hemoglobin 12.4 GM/DL (11.6-15.3) Hematocrit 36.4 % (35.0-46.0) Mean Corpuscular Volume 93.4 FL (80.0-100.0) Mean Corpuscular Hemoglobin 31.8 PG (27.0-34.0) Mean Corpuscular Hemoglobin Concent 34.0 % (32.0-36.0) Red Cell Distribution Width 13.4 % (11.6-17.2) Platelet Count 200 TH/MM3 (150-450) Mean Platelet Volume 9.6 FL (7.0-11.0) Neutrophils (%) (Auto) 68.3 % (16.0-70.0) Lymphocytes (%) (Auto) 23.1 % (9.0-44.0) Monocytes (%) (Auto) 7.3 % (0.0-8.0) Eosinophils (%) (Auto) 0.8 % (0.0-4.0) Basophils (%) (Auto) 0.5 % (0.0-2.0) Neutrophils # (Auto) 5.5 TH/MM3 (1.8-7.7) Lymphocytes # (Auto) 1.9 TH/MM3 (1.0-4.8) Monocytes # (Auto) 0.6 TH/MM3 (0-0.9) Eosinophils # (Auto) 0.1 TH/MM3 (0-0.4) Basophils # (Auto) 0.0 TH/MM3 (0-0.2) CBC Comment DIFF FINAL Differential Comment Blood Urea Nitrogen 18 MG/DL (7-18) Creatinine 1.01 MG/DL (0.50-1.00) Random Glucose 103 MG/DL (74-106) Calcium Level 9.2 MG/DL (8.5-10.1) Sodium Level 139 MEQ/L (136-145) Potassium Level 4.0 MEQ/L (3.5-5.1) Chloride Level 107 MEQ/L (98-107) Carbon Dioxide Level 23.2 MEQ/L (21.0-32.0) Anion Gap 9 MEQ/L (5-15) Estimat Glomerular Filtration Rate 52 ML/MIN (>89) Triglycerides Level 67 MG/DL (42-150) Cholesterol Level 121 MG/DL (120-200) LDL Cholesterol 61 MG/DL (0-99) HDL Cholesterol 47.1 MG/DL (40.0-60.0) Cholesterol/HDL Ratio 2.56 RATIO Result Diagram: 08/03/17 0643 08/03/17 0643 Microbiology Microbiology Date/Time Source Procedure Growth Status 08/02/17 14:05 Blood Peripheral Aerobic Blood Culture Pending Received 08/02/17 14:05 Blood Peripheral Anaerobic Blood Culture Pending Received 08/02/17 14:00 Blood Peripheral Aerobic Blood Culture Pending Received 08/02/17 14:00 Blood Peripheral Anaerobic Blood Culture Pending Received Imaging Last Impressions Pelvis X-Ray 08/02/179 Signed Impressions: Service Date/Time: July 14:41 - CONCLUSION: No acute disease. Kristopher Go MD Knee X-Ray 08/02/171328 Signed Impressions: Service Date/Time: July 14:44 - CONCLUSION: Advanced arthropathy without evidence of acute fracture or joint effusion. Kristopher Go MD Head CT 08/02/171328 Signed Impressions: Service Date/Time: July 14:18 - CONCLUSION: Small wedge-shaped hypodensity in the right parietal lobe which may represent acute to subacute infarct. No evidence of acute hemorrhage or edema. Otherwise normal exam. Kristopher Go MD Chest X-Ray 08/02/171328 Signed Impressions: Service Date/Time: July 14:52 - CONCLUSION: Vascular congestion in central interstitial prominence Akil Goldsmith MD Head Magnetic Resonance Angiography 08/02/17 0000 Signed Impressions: Service Date/Time: July 19:01 - CONCLUSION: 1. 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 Exam degraded by motion. Bharath Burns MD Carotid Artery Ultrasound 08/02/17 0000 Signed Impressions: Service Date/Time: July 22:09 - CONCLUSION: 1. Mild plaque without hemodynamically significant stenosis in the carotid arteries. Vertebral artery flow antegrade. Bharath Burns MD Brain MRI 08/02/17 0000 Signed Impressions: Service Date/Time: July 19:01 - CONCLUSION: 1. 2 small infarcts in the right parieto-occipital region with measurements given above. No hemorrhage or significant mass effect and mild white matter ischemic changes. Bharath Burns MD . Patient/Family Conference Present at Family Conference: Spoke with daughter Brisa and her Dr. Paul Feirstad at length regarding past history both medical and psychosocial as well as trajectory of decline. Reviewed clinical course and radiology findings. Reviewed palliative care purpose and focus as well as the items listed below. Discussed possible placement options, as they feel the [facility] may not provide adequate support for their mother's current disabilities. They are firm in their wishes to keep their parents together in the same location. . Family Conference Time (mins): 45 Family Conference Location: Bedside Issues Discussed: * Palliative care role, purpose, approach * Additional medical, psychosocial, and spiritual history * Patients general health, functional status, and cognitive changes in the months leading up to the current hospitalization * Patient/family understanding of the current medical problems * Patient/family understanding of prognosis * Patients goals of care as best understood from advance directives and/or conversations and/or values * Current medical treatment options and benefits/burdens of those options * Likely scenarios comparing ongoing aggressive care with a transition to comfort measures only * Questions answered to the best of my ability * Palliative care contact information provided Assessment and Plan Disease Oriented Problem List: (1) CVA (cerebral vascular accident) (2) Elevated troponin (3) Altered mental status Symptom Scale: (1) Confusion 0-10 Scale: Unable to quantify (Status post CVA right posterior cerebral artery.) (2) Pain, generalized 0-10 Scale: Unable to quantify (Confused, unable to specify area of discomfort but complains of pain.) Pertinent Non-Medical Issues Psychosocial:Born in [facility], 1 of 10 children. She finished school, and raised her children there. She has been to her for 70 years. 5 years ago they moved to [place] after many years of snowbirding between both [facility]. She and her currently live together in an [facility] Spiritual: Seventh-day Hindu. Legal: Their daughter Brisa provided copies of the healthcare surrogate, living will and power of manager java. Ethical issues impacting care: None noted. . Important Contacts Daughter: Brisa Newton Son: Marin Guerrero Son: Tobin Yolanda Son-in-law: Dr. Paul Newton . Prognosis Her prognosis is guarded. 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 Cardiology has seen her and recommended stopping the heparin drip and continue with aspirin. No cardiac intervention is planned. 2D echocardiogram has been requested and is pending. She has passed her swallow evaluation but is having difficulties expressing her thoughts. It is unknown whether she is able to comprehend the question being asked or is simply unable to express her answer. Family is requesting a DO NOT RESUSCITATE status. Physical therapy is awaiting neuro consultation before attempting to get patient out of bed. She is currently wearing a Holter monitor but those results are not yet available. No further prognostication until test results are available. . Code Status: No Code Plan PLAN: Legal decision maker: Daughter Brisa is the healthcare surrogate and she is coordinating all decisions with her 2 brothers. Goals: Comfort oriented CODE STATUS: DNR SYMPTOMS: * Confusion: Consistent with her area of injury. Pending neurology consultation. She does have expressive aphasia and is having difficulty expressing answers and her thoughts. She is unable to retain information for any length of time. This is likely consistent with her stroke as she was not confused prior to this event. * Pain: She is complaining of discomfort but is unable to identify the source of the discomfort due to her underlying confusion. She does have morphine available 1 mg every 30 minutes as needed at this time has received none. She will need close clinical monitoring for signs and symptoms of pain and she is unable to make her needs known. SUMMARY This is an 87-year-old female brought to the ER from her [facility], where she resides with her , with new onset altered mental status and. She was found down and does appear to have some trauma to the right ear. No hemorrhage has been seen on CT at this time. Concomitantly she also shows evidence of a possible myocardial infarction with elevated troponin and 1 on a heparin drip, but that was stopped by cardiology and patient placed on an aspirin instead. Plan is for conservative management at this time. 2D echocardiogram has been requested and is pending. Further management will be determined after neurology consult and patient's clinical course. She is at significant risk for continued complications and decline. Palliative care will continue to follow the patient during hospital course as condition evolves, to assist patient/decision-maker with understanding of their medical conditions, weighing benefits/burdens of treatment options, for clarification of goals of treatment. Additionally will assist with any symptoms of palliative concern. . Time Spent Time Periods: 11: 15-12: 00 Total Floor Time (mins): 75 Face to Face Time (mins): 45 >50% Counseling/Coord of Care: Yes Thank you for the opportunity to participate in the care of Ms. Guerrero. Attestation To help prompt me to consider important information that might be impacting today's encounter and assessment, information from prior notes written by myself or my colleagues may have been "brought forward" into today's note. My signature on this note, however, is an attestation that I personally performed the exam, history, and/or decision-making noted today, and, unless otherwise indicated, the interactions with patient, family, and staff as well as the review of records all occurred today. I also attest that the listed assessment and stated plan reflect my best clinical judgment today based on the combination of historical information, prior notes, and today's exam/ interactions. When time spent is documented, it refers only to time spent today by the signer, or if indicated, combined time spent today by collaborating physician/nurse practitioner. . Payton Rae Aug 03, 2017 11:20 am
[2017-08-03] MEDS: ONDANSETRON HCL 4 MG/2 ML VIAL IVP PRN ×2 (12:15→18:19)
[2017-08-03 12:29] VITALS: BP 138/74; PULSE 76; RESP 18; TEMP 98.3; O2SAT 98
--- NOTE | 2017-08-03 15:07 | HHI.PR ---
Addendum to Inpatient Note Addendum Reason: Additional Documentation Additional Information Patient denies any pain. Currently, parcel post officer present trying to get blood work. No complaints at this time. RN at bedside, states he removed restraints and patient has been doing well since family has been around. at bedside Discussed the case w Dr. Suggs. He recommended stopping the heparin gtt and continuing w full dose ASA. Neurology consult pending. MRA shows occlusion/high grade stenosis of distal r post cerebral art Jelly Grover MD Aug 03, 2017 15:07
--- NOTE | 2017-08-03 15:32 | MB ---
cc: AYSHA CANCHOLA DATE OF CONSULTATION: 08/03/2017 REASON FOR CONSULTATION: Cardiology consultation. HISTORY OF PRESENT ILLNESS: 87-year-old white female with no previous cardiac history who was admitted with, confusion, headache, disorientation, she fell and was transferred to the emergency room. She has not had any chest pain or shortness of breath. She is confused. She was found to have mildly elevated troponin. She was diagnosed with acute infarct acute CVA. PAST MEDICAL HISTORY Positive for hypertension Carpal tunnel syndrome Arthritis. No history of dyslipidemia, diabetes mellitus, coronary disease. MEDICATIONS Include 1. Augmentin. 2. Macrobid 3. Losartan 4. Aspirin 5. Trazodone 6. potassium. 7. Furosemide 8. Mucinex. 9. Robitussin. ALLERGIES None. SOCIAL HISTORY The patient does not smoke. She does not drink alcohol. She is accompanied by her . FAMILY HISTORY Positive for heart disease in for stroke in her father. Systems is otherwise negative. PHYSICAL EXAMINATION VITAL SIGNS: Blood pressure 138/74, Pulse 96 and regular. HEAD, EYES, EARS, NOSE, AND THROAT: Negative. NECK: Carotid upstrokes and bruits. LUNGS: Clear. HEART: Regular rate, no murmur or gallop and soft bruits. EXTREMITIES: Without edema. NEUROLOGIC: Grossly nonfocal. RADIOLOGIC: EKG was reviewed and showed normal sinus rhythm with normal wall, first-degree AV block, otherwise normal axis and intervals, no acute changes. LABORATORY DATA Hemoglobin 12.4, potassium 4.0, creatinine 1.0, CK 122, 138, 145, troponin 1.55, 1.69 and 1.56, LDL 61, HDL 47. DIAGNOSIS: 1. Acute CVA 2. Mildly elevated troponin. 3. Altered mental status. 4. Hypertension. DISPOSITION Miss Guerrero will be monitored on telemetry. She is undergoing neurology evaluation. Her troponin is mildly elevated but is not trending in either direction. We will obtain echocardiogram to evaluate left ventricle function. I will follow her for cardiology during her hospitalization. MD EMILIA Bhatti/grant /2:53 PM /3:08 PM
[2017-08-03 16:00] VITALS: BP 134/75; PULSE 69; RESP 18; TEMP 98.5; O2SAT 95
[2017-08-03 18:24] LABS: HEMOGLOBIN A1C 5.8 % (4.3-6.0)
[2017-08-03] MEDS ORDERED: GLUCAGON 1 MG/ML VIAL OTHER PRN (18:30)
[2017-08-03] MEDS ORDERED: DEXTROSE 50% IN WATER 50 ML VIAL(D50) IV PUSH PRN (18:30)
[2017-08-03] MEDS ORDERED: SODIUM CHLORIDE 0.9% FLUSH 10 ML FLUSH IV FLUSH PRN (18:30)
--- NOTE | 2017-08-03 19:24 | MB ---
cc: RENEE WILEY M.D. DATE OF CONSULTATION: 08/03/2017. REASON FOR CONSULTATION: Stroke. HISTORY OF PRESENT ILLNESS: Ms. Guerrero is an 87-year-old woman who developed mental status change at the assisted-living facility with difficulty with her speech. She came to the hospital. She did not have a focal motor deficits but she had an MRI of the brain done which showed two small infarctions in the right parietooccipital region. PAST MEDICAL HISTORY: Her past medical history is remarkable for: 1. Hypertension. 2. Arthritis. 3. Carpal tunnel syndrome. MEDICATIONS AT THE RESIDENTIAL: 1. Robitussin. 2. Mucinex. 3. Augmentin. 4. Macrobid. 5. Trazodone. 6. Potassium chloride. 7. Lyrica. 8. Losartan. 9. Aspirin 81 milligrams daily. 10. Lasix. NEUROLOGIC EXAMINATION: VITAL SIGNS: Blood pressure is 134/75, pulse 69, respiratory rate is 18, temperature 98.5 degrees. HIGHER CORTICAL FUNCTIONS: Patient is alert and oriented x2. Follows commands. Speech is fluent at this time. CRANIAL NERVES: Cranial nerves normal. MOTOR: Motor exam reveals 5/5 strength of all groups. There is no drift. REFLEXES: Reflexes are symmetric. IMAGING STUDIES: CT scan of the brain shows small wedge-shaped hyperdensity in the right parietal lobe consistent with probable stroke. MRI of the brain shows two small infarcts in the right parietooccipital area. No hemorrhage. 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 Carotid ultrasound shows mild plaquing. No significant stenosis is seen. EKGS: EKG shows normal sinus rhythm, first-degree AV block. LABORATORY DATA: The white count is 8100, hemoglobin 12.4, hematocrit 36.4% platelet count 200,000. PT is 1.2, INR 1.1, APTT 23.8. Sodium is 139, potassium is 4, chloride is 107, CO2 is 23.2. The BUN is 18, creatinine 1.01, GFR is 52, LDL 61, cholesterol 121, HDL 47. IMPRESSION: Right hemisphere stroke. RECOMMENDATIONS: 1. Start Plavix 75 milligrams daily. 2. Check an echocardiogram. 3. Monitor cardiac telemetry to rule out atrial fibrillation. MD WILI Spears/PAT /6:21 PM /7:13 PM
[2017-08-03] MEDS: SODIUM CHLOR 0.9% 1000 ML INJ 1,000 ML IV SCH (19:35)
[2017-08-03] MEDS: CLOPIDOGREL 75 MG TAB PO SCH (19:35)
[2017-08-03 20:00] VITALS: BP 165/74; PULSE 87; RESP 18; TEMP 98; O2SAT 97
[2017-08-03] MEDS: SODIUM CHLORIDE 0.9% FLUSH 10 ML FLUSH IV FLUSH SCH (21:00)
--- NOTE | 2017-08-03 22:18 | ECHRPT ---
Indication: CVA/TIA CONCLUSIONS Normal left ventricular size. Mild concentric left ventricular hypertrophy. The left ventricular systolic function is mildly reduced with an estimated ejection fraction in the range of 40- 45%. There is anteroapical and distal anteroseptal hypokinesis. The left atrial size is moderately dilated. The right atrial size is mildly dilated. The right atrial size is [id number]-ifnxykygpc dilated. Gaom-ui-aitdfhvu mitral valve regurgitation. There is mild tricuspid valve regurgitation. The estimated pulmonary arterial pressure is 51 mmHg. BP: 148 / 77 HR: 79 Rhythm: Sinus MEASUREMENTS (Male / Female) Normal Values Technical Quality:Fair 2D ECHO LV Diastolic Diameter PLAX 4.6 cm 4.2 - 5.9 / 3.9 - 5.3 cm LV Systolic Diameter PLAX 3.7 cm IVS Diastolic Thickness 1.1 cm 0.6 - 1.0 / 0.6 - 0.9 cm LVPW Diastolic Thickness 1.1 cm 0.6 - 1.0 / 0.6 - 0.9 cm LV Relative Wall Thickness 0.5 RV Internal Dim ED PLAX 2.6 cm LVOT Diameter 1.8 cm Aortic Root Diameter 2.6 cm LA Systolic Diameter LX 3.0 cm 3.0 - 4.0 / 2.7 - 3.8 cm M-MODE AV Cusp Separation MM 1.7 cm DOPPLER AV Peak Velocity 149.0 cm/s AV Peak Gradient 8.9 mmHg AV Mean Gradient 4.0 mmHg AV Velocity Time Integral 29.5 cm LVOT Peak Velocity 70.7 cm/s LVOT Peak Gradient 2.0 mmHg LVOT Velocity Time Integral 14.4 cm AV Area Cont Eq vti 1.2 cm AV Area Cont Eq pk 1.2 cm LV E' Lateral Velocity 8.3 cm/s LV E' Septal Velocity 6.3 cm/s TR Peak Velocity 320.0 cm/s TR Peak Gradient 41.0 mmHg Right Atrial Pressure 10.0 mmHg Pulmonary Artery Systolic Pressu 51.0 mmHg Right Ventricular Systolic Press 51.0 mmHg PV Peak Velocity 72.9 cm/s PV Peak Gradient 2.1 mmHg FINDINGS LEFT VENTRICLE Normal left ventricular size. Mild concentric left ventricular hypertrophy. The left ventricular systolic function is mildly reduced with an estimated ejection fraction in the range of 40- 45%. There is distinct regional wall motion abnormalities RIGHT VENTRICLE Normal right ventricular size and systolic function. LEFT ATRIUM The left atrial size is moderately dilated. RIGHT ATRIUM The right atrial size is mildly dilated. The right atrial size is rilj-oe-etyskeuaib dilated. ATRIAL SEPTUM No atrial level shunt is demonstrated by color flow Doppler interrogation. AORTA The aortic root and proximal ascending aorta are normal in size on limited imaging. MITRAL VALVE Jjpg-je-ffqpylyy mitral valve regurgitation. AORTIC VALVE Trileaflet aortic valve. No aortic valve stenosis or regurgitation. TRICUSPID VALVE There is mild tricuspid valve regurgitation. The estimated pulmonary arterial pressure is 51 mmHg. PULMONARY VALVE No pulmonary valve regurgitation or stenosis. VESSELS The inferior vena cava is normal in size. PERICARDIUM No pericardial effusion. Carrillo Suggs MD, FACC (Electronically Signed) Final Date:03 August 2017 22:17
[2017-08-04] VITALS (9 sets, daily range): BP systolic 123–134; BP diastolic 59–75; PULSE 60–119; RESP 18–20; TEMP 97.3–98.9; O2SAT 95–98
--- NOTE | 2017-08-04 00:04 | EKG ---
Date Performed: 08/03/2017 Time Performed: 02:43:10 PTAGE: 87 years EKG: Sinus rhythm with 1st degree A-V block PACs Rightward axis Lateral T wave changes are nonspecific Abnormal ECG PREVIOUS TRACING : 08/02/2017 19.49 Since the prior tracing, there has been no significant mckeon DOCTOR: Carrillo Suggs Interpretating Date/Time 08/04/2017 00:02:13
--- NOTE | 2017-08-04 00:30 | EKG ---
Date Performed: 08/02/2017 Time Performed: 19:49:29 PTAGE: 87 years EKG: Sinus rhythm WITH FIRST DEGREE AV BLOCK WITH OCCASIONAL SUPRAVENTRICULAR PREMATURE COMPLEXES ABNORMAL ECG PREVIOUS TRACING : 08/02/2017 14.00 Since the prior tracing, there has been no significant mckeon DOCTOR: Carrillo Suggs Interpretating Date/Time 08/04/2017 00:28:14
--- NOTE | 2017-08-04 01:06 | EKG ---
Date Performed: 08/02/2017 Time Performed: 14:00:19 PTAGE: 87 years EKG: Sinus rhythm WITH FIRST DEGREE AV BLOCK ABNORMAL ECG NO PREVIOUS TRACING DOCTOR: Carrillo Suggs Interpretating Date/Time 08/04/2017 01:05:02
[2017-08-04] MEDS: PANTOPRAZOLE SODIUM 40 MG VIAL IV PUSH SCH ×2 (06:06→18:30)
[2017-08-04] MEDS: ONDANSETRON HCL 4 MG/2 ML VIAL IVP PRN ×3 (06:06→13:41)
[2017-08-04] MEDS: INSULIN ASPART SUPPLEMENTAL SCALE SQ SCH ×4 (08:00→21:19)
[2017-08-04] MEDS: ASPIRIN 325 MG TAB PO SCH (08:34)
[2017-08-04] MEDS: DOCUSATE SODIUM 50 MG/SENNA 8.6 MG TAB PO SCH ×2 (08:34→21:17)
[2017-08-04] MEDS: SODIUM CHLORIDE 0.9% FLUSH 10 ML FLUSH IV FLUSH SCH ×2 (08:35→21:16)
[2017-08-04] MEDS: CLOPIDOGREL 75 MG TAB PO SCH (08:35)
[2017-08-04] MEDS: SODIUM CHLOR 0.9% 1000 ML INJ 1,000 ML IV SCH ×2 (08:40→23:10)
--- NOTE | 2017-08-04 13:05 | HHI.PR ---
Subjective Remarks Pt seen prior to lunch time, tells me "I don't know what to do". she points to the TV, tells me she doesn't want to watch "this". I did offer to change the channel and she agreed. Pt denied any pain, nausea or vomiting Objective Vitals Vital Signs Date Time Temp Pulse Resp B/P (MAP) Pulse Ox O2 Delivery O2 Flow Rate FiO2 08/04/17 12:50 96 08/04/17 12:09 97.3 75 20 126/61 (82) 96 08/04/17 10:24 81 08/04/17 08:55 98.1 84 20 134/69 (90) 95 08/04/17 04:40 97.5 76 18 132/75 (94) 98 08/03/17 20:00 98.0 87 18 165/74 (104) 97 08/03/17 16:00 98.5 69 18 134/75 (94) 95 I/O 08/03/17 08/03/17 08/03/17 08/04/17 08/04/17 08/04/17 07:00 15:00 23:00 07:00 15:00 23:00 # Voids 2 3 # Bowel Movements 1 2 Result Diagram: 08/03/17 0643 08/03/17 0643 Imaging Last Impressions Pelvis X-Ray 08/02/17 1329 Signed Impressions: Service Date/Time: July 14:41 - CONCLUSION: No acute disease. Kristopher Go MD Knee X-Ray 08/02/171328 Signed Impressions: Service Date/Time: July 14:44 - CONCLUSION: Advanced arthropathy without evidence of acute fracture or joint effusion. Kristopher Go MD Head CT 08/02/17 1329 Signed Impressions: Service Date/Time: July 14:18 - CONCLUSION: Small wedge-shaped hypodensity in the right parietal lobe which may represent acute to subacute infarct. No evidence of acute hemorrhage or edema. Otherwise normal exam. Kristopher Go MD Chest X-Ray 08/02/17 1329 Signed Impressions: Service Date/Time: July 14:52 - CONCLUSION: Vascular congestion in central interstitial prominence Akil Goldsmith MD Head Magnetic Resonance Angiography 08/02/17 0000 Signed Impressions: Service Date/Time: July 19:01 - CONCLUSION: 1. 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 Exam degraded by motion. Bharath Burns MD Carotid Artery Ultrasound 08/02/17 0000 Signed Impressions: Service Date/Time: July 22:09 - CONCLUSION: 1. Mild plaque without hemodynamically significant stenosis in the carotid arteries. Vertebral artery flow antegrade. Bharath Burns MD Brain MRI 08/02/17 0000 Signed Impressions: Service Date/Time: July 19:01 - CONCLUSION: 1. 2 small infarcts in the right parieto-occipital region with measurements given above. No hemorrhage or significant mass effect and mild white matter ischemic changes. Bharath Burns MD Objective Remarks GENERAL: sitting on recliner, pleasantly confused but seems worried but cannot express her concerns as she states "I don't know what to do" ENT: Airway patent. NECK: Trachea midline. CARDIOVASCULAR: Regular rate and rhythm without murmurs RESPIRATORY: Clear to auscultation. Breath sounds equal bilaterally. No wheezes GASTROINTESTINAL: Abdomen soft, non-tender, nondistended. No guarding. MUSCULOSKELETAL: Extremities without edema. No calf tenderness. NEUROLOGICAL: Awake and alert. Normal speech although she is confused. A/P Assessment and Plan CVA. Brain MRI showing 2 small infarcts in the right parieto-occipital region. No hemorrhage. No mass effect. MRA shows occlusion/high grade stenosis of distal r post cerebral art. on ASA/plavix. EF 40-45%. on TELE. neurology following. speech therapy following. rehab medicine following. PT also following and awaiting their recs. elevated Trop: discussed w Dr. Suggs and for now continue conservative management. no intervention HTN: BP's stable. continue to monitor closely. DVt proph: SCD. Discharge Planning awaiting final recs from neuro cards recommends conservative management awaiting final recs from PT as well Jelly Grover MD Aug 04, 2017 13:05
[2017-08-04] MEDS: ACETAMINOPHEN 325 MG TAB PO PRN (18:47)
--- NOTE | 2017-08-04 19:41 | PD.CARD.PN ---
Subjective Subjective Remarks No CP or SOB, very confused, PT in progress Objective Medications Current Medications Medications (Trade) Dose Ordered Sig/Harlan Route Start Time Stop Time Status Last Admin (Vasotec Inj) 1.25 mg Q4H PRN IV PUSH 08/02/17 17:15 (Trandate Inj) 10 mg Q2H PRN IV PUSH 08/02/17 17:15 (Aspirin) 325 mg DAILY PO 08/03/17 09:00 08/04/17 08:34 (Heparin Inj) 5,000 units Q8H SQ 08/02/17 17:15 Future Hold 08/02/17 17:23 (Tylenol) 650 mg Q4H PRN PO 08/02/17 19:00 08/04/17 18:47 (Zofran Inj) 4 mg Q6H PRN IVP 08/02/17 19:00 08/04/17 13:41 (Narcan Inj) 0.4 mg UNSCH PRN IV PUSH 08/02/17 19:00 (Nan-Colace) 1 tab BID PO 08/02/17 21:00 08/04/17 08:34 (Milk Of Magnesia Liq) 30 ml Q12H PRN PO 08/02/17 19:00 (Senokot) 17.2 mg Q12H PRN PO 08/02/17 19:00 (Protonix Inj) 40 mg Q12H IV PUSH 08/03/17 06:00 08/04/17 18:30 (Nitrostat Sl) 0.4 mg Q5M PRN SL 08/03/17 08:30 (Morphine Inj) 1 mg Q30M PRN IV PUSH 08/03/17 08:30 (NS Flush) 2 ml BID IV FLUSH 08/03/17 21:00 08/04/17 08:35 (NS Flush) 2 ml UNSCH PRN IV FLUSH 08/03/17 18:30 Sodium Chloride 1,000 ml @ 70 mls/hr [id number] IV 08/03/17 18:25 08/04/17 08:40 (Plavix) 75 mg DAILY PO 08/03/17 19:00 08/04/17 08:35 (NovoLOG SUPPLEMENTAL SCALE) 1 ACHS SQ 08/03/17 21:00 (D50w (Vial) Inj) 50 ml UNSCH PRN IV PUSH 08/03/17 18:30 (Glucagon Inj) 1 mg UNSCH PRN OTHER 08/03/17 18:30 (Heparin Inj) 5,000 units Q12HR SQ 08/04/17 21:00 Vital Signs / I&O Vital Signs Date Time Temp Pulse Resp B/P (MAP) Pulse Ox O2 Delivery O2 Flow Rate FiO2 08/04/17 16:56 98.9 64 20 124/59 (80) 97 08/04/17 12:50 96 08/04/17 12:09 97.3 75 20 126/61 (82) 96 08/04/17 10:24 81 08/04/17 08:55 98.1 84 20 134/69 (90) 95 08/04/17 04:40 97.5 76 18 132/75 (94) 98 08/03/17 20:00 98.0 87 18 165/74 (104) 97 I/O 08/03/17 08/03/17 08/03/17 08/04/17 08/04/17 08/04/17 07:00 15:00 23:00 07:00 15:00 23:00 # Voids 2 3 # Bowel Movements 1 2 Physical Exam GENERAL: In NAD SKIN: Warm and dry. HEAD: Normocephalic. EYES: No scleral icterus. No injection or drainage. NECK: Supple, trachea midline. No JVD or lymphadenopathy. CARDIOVASCULAR: Regular rate and rhythm without murmurs, gallops, or rubs. RESPIRATORY: Breath sounds equal bilaterally. No accessory muscle use. GASTROINTESTINAL: Abdomen soft, non-tender, nondistended. MUSCULOSKELETAL: No cyanosis, or edema. Assessment and Plan Problem List: (1) CVA (cerebral vascular accident) ICD Codes: I63.9 - Cerebral infarction, unspecified Status: Acute (2) Elevated troponin ICD Codes: R74.8 - Abnormal levels of other serum enzymes Status: Acute (3) Cardiomyopathy ICD Codes: I42.9 - Cardiomyopathy, unspecified (4) HTN (hypertension) ICD Codes: I10 - Essential (primary) hypertension (5) Altered mental status ICD Codes: R41.82 - Altered mental status, unspecified Status: Acute (6) Confusion ICD Codes: R41.0 - Disorientation, unspecified Assessment and Plan Echo with mild LV dysfunction with distal and AA hypokinesis. Continue current program. Risk factor modification. Tx for CHF. Increase activity, PT. Carrillo Suggs MD Aug 04, 2017 19:41
--- NOTE | 2017-08-04 19:59 | HHI.PR ---
Review/Management Diagnosis right parieto-ocipital cva Plan continue plavix and asa. Diagnosis/Plan: Subjective Subjective Comments No acute events reported No headache Active Medications Current Medications Medications (Trade) Dose Ordered Sig/Harlan Route Start Time Stop Time Status Last Admin (Vasotec Inj) 1.25 mg Q4H PRN IV PUSH 08/02/17 17:15 (Trandate Inj) 10 mg Q2H PRN IV PUSH 08/02/17 17:15 (Aspirin) 325 mg DAILY PO 08/03/17 09:00 08/04/17 08:34 (Heparin Inj) 5,000 units Q8H SQ 08/02/17 17:15 Future Hold 08/02/17 17:23 (Tylenol) 650 mg Q4H PRN PO 08/02/17 19:00 08/04/17 18:47 (Zofran Inj) 4 mg Q6H PRN IVP 08/02/17 19:00 08/04/17 13:41 (Narcan Inj) 0.4 mg UNSCH PRN IV PUSH 08/02/17 19:00 (Nan-Colace) 1 tab BID PO 08/02/17 21:00 08/04/17 08:34 (Milk Of Magnesia Liq) 30 ml Q12H PRN PO 08/02/17 19:00 (Senokot) 17.2 mg Q12H PRN PO 08/02/17 19:00 (Protonix Inj) 40 mg Q12H IV PUSH 08/03/17 06:00 08/04/17 18:30 (Nitrostat Sl) 0.4 mg Q5M PRN SL 08/03/17 08:30 (Morphine Inj) 1 mg Q30M PRN IV PUSH 08/03/17 08:30 (NS Flush) 2 ml BID IV FLUSH 08/03/17 21:00 08/04/17 08:35 (NS Flush) 2 ml UNSCH PRN IV FLUSH 08/03/17 18:30 Sodium Chloride 1,000 ml @ 70 mls/hr [id number] IV 08/03/17 18:25 08/04/17 08:40 (Plavix) 75 mg DAILY PO 08/03/17 19:00 08/04/17 08:35 (NovoLOG SUPPLEMENTAL SCALE) 1 ACHS SQ 08/03/17 21:00 (D50w (Vial) Inj) 50 ml UNSCH PRN IV PUSH 08/03/17 18:30 (Glucagon Inj) 1 mg UNSCH PRN OTHER 08/03/17 18:30 (Heparin Inj) 5,000 units Q12HR SQ 08/04/17 21:00 Allergies Allergies Coded Allergies No Known Allergies (Unverified08/02/17) Exam I&O / VS Vital Signs Date Time Temp Pulse Resp B/P (MAP) Pulse Ox O2 Delivery O2 Flow Rate FiO2 08/04/17 16:56 98.9 64 20 124/59 (80) 97 08/04/17 12:50 96 08/04/17 12:09 97.3 75 20 126/61 (82) 96 08/04/17 10:24 81 08/04/17 08:55 98.1 84 20 134/69 (90) 95 08/04/17 04:40 97.5 76 18 132/75 (94) 98 08/03/17 20:00 98.0 87 18 165/74 (104) 97 Exam Comments alert, disoriented, very confused. Able to follow simple commands only Cn intact MOTOR--5/5 BUE Objective Micro and Labs Date/Time Source Procedure Growth Status 08/02/17 14:05 Blood Peripheral Aerobic Blood Culture - Preliminary NO GROWTH IN 2 DAYS Resulted 08/02/17 14:05 Blood Peripheral Anaerobic Blood Culture - Preliminary NO GROWTH IN 2 DAYS Resulted Rosas Ji MD PhD Aug 04, 2017 19:59
[2017-08-04] MEDS: HEPARIN SODIUM - SQ 10,000 UNITS/ML VIAL SQ SCH (21:16)
[2017-08-05] VITALS (11 sets, daily range): BP systolic 119–149; BP diastolic 55–96; PULSE 60–125; RESP 18–20; TEMP 97.4–98.5; O2SAT 96–98
[2017-08-05] MEDS: ACETAMINOPHEN 325 MG TAB PO PRN (03:37)
[2017-08-05] MEDS: PANTOPRAZOLE SODIUM 40 MG VIAL IV PUSH SCH ×2 (05:31→18:43)
[2017-08-05] MEDS: INSULIN ASPART SUPPLEMENTAL SCALE SQ SCH ×4 (08:00→21:00)
[2017-08-05] MEDS: DOCUSATE SODIUM 50 MG/SENNA 8.6 MG TAB PO SCH ×2 (08:58→21:25)
[2017-08-05] MEDS: CLOPIDOGREL 75 MG TAB PO SCH (08:58)
[2017-08-05] MEDS: ASPIRIN 325 MG TAB PO SCH (08:58)
[2017-08-05] MEDS: HEPARIN SODIUM - SQ 10,000 UNITS/ML VIAL SQ SCH ×2 (09:00→21:25)
[2017-08-05] MEDS: SODIUM CHLORIDE 0.9% FLUSH 10 ML FLUSH IV FLUSH SCH ×2 (09:02→21:25)
[2017-08-05] MEDS: ONDANSETRON HCL 4 MG/2 ML VIAL IVP PRN (10:44)
[2017-08-05 11:54] LABS: BASOPHIL # 0.1 TH/MM3 (0-0.2); BASOPHIL % 0.7 % (0.0-2.0); EOSINOPHIL % 0.2 % (0.0-4.0); HEMATOCRIT 37.5 % (35.0-46.0); HEMOGLOBIN 12.6 GM/DL (11.6-15.3); LYMPH % 17.7 % (9.0-44.0); LYMPHOCYTE # 1.9 TH/MM3 (1.0-4.8); MEAN CELL VOLUME 94.2 FL (80.0-100.0); MEAN CORPUSCULAR HEMOGLOBIN 31.6 PG (27.0-34.0); MEAN CORPUSCULAR HGB CONC 33.5 % (32.0-36.0); MEAN PLATELET VOLUME 10.1 FL (7.0-11.0); MONO % 7.2 % (0.0-8.0); MONOCYTE # 0.8 TH/MM3 (0-0.9); NEUT % 74.2 % (16.0-70.0); PLATELET COUNT 196 TH/MM3 (150-450); RED BLOOD COUNT 3.98 MIL/MM3 (4.00-5.30); RED CELL DISTRIBUTION WIDTH 13.8 % (11.6-17.2); WHITE BLOOD COUNT 10.8 TH/MM3 (4.0-11.0)
[2017-08-05 12:07] LABS: BICARBONATE 22.3 MEQ/L (21.0-32.0); CALCIUM 9.1 MG/DL (8.5-10.1); CREATININE 1.03 MG/DL (0.50-1.00)
[2017-08-05] MEDS: SODIUM CHLOR 0.9% 1000 ML INJ 1,000 ML IV SCH (13:19)
--- NOTE | 2017-08-05 15:04 | PD.CARD.PN ---
Subjective Subjective Remarks No CP or SOB, confused Objective Medications Current Medications Medications (Trade) Dose Ordered Sig/Harlan Route Start Time Stop Time Status Last Admin (Vasotec Inj) 1.25 mg Q4H PRN IV PUSH 08/02/17 17:15 (Trandate Inj) 10 mg Q2H PRN IV PUSH 08/02/17 17:15 (Aspirin) 325 mg DAILY PO 08/03/17 09:00 08/05/17 08:58 (Heparin Inj) 5,000 units Q8H SQ 08/02/17 17:15 Future Hold 08/02/17 17:23 (Tylenol) 650 mg Q4H PRN PO 08/02/17 19:00 08/05/17 03:37 (Zofran Inj) 4 mg Q6H PRN IVP 08/02/17 19:00 08/05/17 10:44 (Narcan Inj) 0.4 mg UNSCH PRN IV PUSH 08/02/17 19:00 (Nan-Colace) 1 tab BID PO 08/02/17 21:00 08/05/17 08:58 (Milk Of Magnesia Liq) 30 ml Q12H PRN PO 08/02/17 19:00 (Senokot) 17.2 mg Q12H PRN PO 08/02/17 19:00 (Protonix Inj) 40 mg Q12H IV PUSH 08/03/17 06:00 08/05/17 05:31 (Nitrostat Sl) 0.4 mg Q5M PRN SL 08/03/17 08:30 (Morphine Inj) 1 mg Q30M PRN IV PUSH 08/03/17 08:30 (NS Flush) 2 ml BID IV FLUSH 08/03/17 21:00 08/05/17 09:02 (NS Flush) 2 ml UNSCH PRN IV FLUSH 08/03/17 18:30 Sodium Chloride 1,000 ml @ 70 mls/hr [id number] IV 08/03/17 18:25 08/04/17 23:10 (Plavix) 75 mg DAILY PO 08/03/17 19:00 08/05/17 08:58 (NovoLOG SUPPLEMENTAL SCALE) 1 ACHS SQ 08/03/17 21:00 (D50w (Vial) Inj) 50 ml UNSCH PRN IV PUSH 08/03/17 18:30 (Glucagon Inj) 1 mg UNSCH PRN OTHER 08/03/17 18:30 (Heparin Inj) 5,000 units Q12HR SQ 08/04/17 21:00 08/05/17 09:00 Vital Signs / I&O Vital Signs Date Time Temp Pulse Resp B/P (MAP) Pulse Ox O2 Delivery O2 Flow Rate FiO2 08/05/17 12:01 98.4 116 18 122/73 (89) 98 08/05/17 08:05 97.8 67 18 149/67 (94) 97 08/05/17 04:16 110 08/05/17 04:00 97.4 119 20 119/55 (76) 97 08/05/17 00:05 60 08/05/17 00:00 97.7 71 18 134/64 (87) 98 08/04/17 20:48 60 08/04/17 20:00 97.4 67 18 123/61 (81) 96 08/04/17 16:56 98.9 64 20 124/59 (80) 97 I/O 08/04/17 08/04/17 08/04/17 08/05/17 08/05/17 08/05/17 07:00 15:00 23:00 07:00 15:00 23:00 # Voids 3 2 # Bowel Movements 2 Physical Exam GENERAL: In NAD SKIN: Warm and dry. HEAD: Normocephalic. EYES: No scleral icterus. No injection or drainage. NECK: Supple, trachea midline. No JVD or lymphadenopathy. CARDIOVASCULAR: Regular rate and rhythm without murmurs, gallops, or rubs. RESPIRATORY: Breath sounds equal bilaterally. No accessory muscle use. GASTROINTESTINAL: Abdomen soft, non-tender, nondistended. MUSCULOSKELETAL: No cyanosis, or edema. Laboratory Laboratory Tests Test 08/05/17 11:20 White Blood Count 10.8 TH/MM3 Red Blood Count 3.98 MIL/MM3 Hemoglobin 12.6 GM/DL Hematocrit 37.5 % Mean Corpuscular Volume 94.2 FL Mean Corpuscular Hemoglobin 31.6 PG Mean Corpuscular Hemoglobin Concent 33.5 % Red Cell Distribution Width 13.8 % Platelet Count 196 TH/MM3 Mean Platelet Volume 10.1 FL Neutrophils (%) (Auto) 74.2 % Lymphocytes (%) (Auto) 17.7 % Monocytes (%) (Auto) 7.2 % Eosinophils (%) (Auto) 0.2 % Basophils (%) (Auto) 0.7 % Neutrophils # (Auto) 8.0 TH/MM3 Lymphocytes # (Auto) 1.9 TH/MM3 Monocytes # (Auto) 0.8 TH/MM3 Eosinophils # (Auto) 0.0 TH/MM3 Basophils # (Auto) 0.1 TH/MM3 CBC Comment AUTO DIFF Differential Comment AUTO DIFF CONFIRMED Blood Urea Nitrogen 18 MG/DL Creatinine 1.03 MG/DL Random Glucose 109 MG/DL Calcium Level 9.1 MG/DL Sodium Level 141 MEQ/L Potassium Level 3.9 MEQ/L Chloride Level 111 MEQ/L Carbon Dioxide Level 22.3 MEQ/L Anion Gap 8 MEQ/L Estimat Glomerular Filtration Rate 50 ML/MIN Assessment and Plan Problem List: (1) CVA (cerebral vascular accident) ICD Codes: I63.9 - Cerebral infarction, unspecified Status: Acute (2) Elevated troponin ICD Codes: R74.8 - Abnormal levels of other serum enzymes Status: Acute (3) Cardiomyopathy ICD Codes: I42.9 - Cardiomyopathy, unspecified (4) HTN (hypertension) ICD Codes: I10 - Essential (primary) hypertension (5) Altered mental status ICD Codes: R41.82 - Altered mental status, unspecified Status: Acute (6) Confusion ICD Codes: R41.0 - Disorientation, unspecified Assessment and Plan No new cardiac issues. Echo with mild LV dysfunction with distal and AA hypokinesis. Continue current program including cardiac risk factor modification. Continue therapy for CM/CHF. Increase activity, PT. D/w pt's family. Carrillo Suggs MD Aug 05, 2017 15:04
--- NOTE | 2017-08-05 15:09 | RADRPT ---
EXAM DATE/TIME: 08/05/2017 14:29 [facility] COMPARISON: No previous studies available for comparison. INDICATIONS : Abdominal pain. MEDICAL HISTORY : Hypertension. Arthritis. Carpal tunnel SURGICAL HISTORY : None. ENCOUNTER: Subsequent ACUITY: 2 days PAIN SCORE: 10/10 LOCATION: Abdomen. FINDINGS: Supine view of the abdomen was performed. The abdominal bowel gas pattern is normal. No abnormal ma sses, calcifications, or organomegaly is seen. The osseous structures are unremarkable. CONCLUSION: Normal examination. Caleb Coronado MD on August 05, 2017 at 15:07 Board Certified Radiologist. This report was verified electronically.
--- NOTE | 2017-08-05 15:55 | HHI.PR ---
Subjective Remarks Late entry: Pt seen around lunch time. Complained of abdominal pain /, cannot point where exactly the pain is but mentions it is "crampy" when I offer her options crampy vs stabbing.... Pt then states "I don't know what to do". She is confused. cannot tell me the year or the month and even her but knows her name Discussed w RN, she did have a BM recently Objective Vitals Vital Signs Date Time Temp Pulse Resp B/P (MAP) Pulse Ox O2 Delivery O2 Flow Rate FiO2 08/05/17 12:01 98.4 116 18 122/73 (89) 98 08/05/17 08:05 97.8 67 18 149/67 (94) 97 08/05/17 04:16 110 08/05/17 04:00 97.4 119 20 119/55 (76) 97 08/05/17 00:05 60 08/05/17 00:00 97.7 71 18 134/64 (87) 98 08/04/17 20:48 60 08/04/17 20:00 97.4 67 18 123/61 (81) 96 08/04/17 16:56 98.9 64 20 124/59 (80) 97 I/O 08/04/17 08/04/17 08/04/17 08/05/17 08/05/17 08/05/17 06:59 14:59 22:59 06:59 14:59 22:59 # Voids 3 2 # Bowel Movements 2 Result Diagram: 08/05/17 1120 08/05/17 1120 Imaging Last Impressions Abdomen X-Ray 08/05/17 0000 Signed Impressions: Service Date/Time: Saturday, August 05, 2017 14:29 - CONCLUSION: Normal examination. Caleb Coronado MD Pelvis X-Ray 08/02/17 1329 Signed Impressions: Service Date/Time: July 14:41 - CONCLUSION: No acute disease. Kristopher Go MD Knee X-Ray 08/02/17 132 Signed Impressions: Service Date/Time: July 14:44 - CONCLUSION: Advanced arthropathy without evidence of acute fracture or joint effusion. Kristopher Go MD Head CT 08/02/17 1329 Signed Impressions: Service Date/Time: July 14:18 - CONCLUSION: Small wedge-shaped hypodensity in the right parietal lobe which may represent acute to subacute infarct. No evidence of acute hemorrhage or edema. Otherwise normal exam. Kristopher Go MD Chest X-Ray 08/02/17 1329 Signed Impressions: Service Date/Time: July 14:52 - CONCLUSION: Vascular congestion in central interstitial prominence Akil Goldmsith MD Head Magnetic Resonance Angiography 08/02/17 0000 Signed Impressions: Service Date/Time: July 19:01 - CONCLUSION: 1. 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 Exam degraded by motion. Bharath Burns MD Carotid Artery Ultrasound 08/02/17 0000 Signed Impressions: Service Date/Time: July 22:09 - CONCLUSION: 1. Mild plaque without hemodynamically significant stenosis in the carotid arteries. Vertebral artery flow antegrade. Bharath Burns MD Brain MRI 08/02/17 0000 Signed Impressions: Service Date/Time: July 19:01 - CONCLUSION: 1. 2 small infarcts in the right parieto-occipital region with measurements given above. No hemorrhage or significant mass effect and mild white matter ischemic changes. Bharath Burns MD Objective Remarks GENERAL: sitting on recliner, pleasantly confused but seems worried states "I don't know what to do" then complains of abdominal pain ENT: Airway patent. NECK: Trachea midline. CARDIOVASCULAR: Regular rate and rhythm without murmurs RESPIRATORY: Clear to auscultation. Breath sounds equal bilaterally. No wheezes GASTROINTESTINAL: Abdomen soft, grimaces but cannot assess where the pain is, seems to be tender throughout, nondistended. No guarding. MUSCULOSKELETAL: Extremities without edema. No calf tenderness. NEUROLOGICAL: Awake and alert. Normal speech although she is confused. A/P Assessment and Plan CVA. Brain MRI showing 2 small infarcts in the right parieto-occipital region. No hemorrhage. No mass effect. MRA shows occlusion/high grade stenosis of distal r post cerebral art. on ASA/plavix. EF 40-45%. on TELE. neurology following. speech therapy following. rehab medicine following. PT also following and recommend rehab. CM assisting w d/c planning. Abdominal pain: last BM was yesterday, no diarrhea per RN. KUB ordered and neg. will check lipase and LFTs. Check abdominal u/s. If pain persistent, will consult GI elevated Trop: discussed w Dr. Suggs and for now continue conservative management. no intervention HTN: BP's stable. continue to monitor closely. DVt proph: SCD. Discharge Planning awaiting final recs from neuro cards recommends conservative management Pt will need rehab. Pt complaining of abdominal pain, work-up in progress Jelly Grover MD Aug 05, 2017 15:55
[2017-08-05 16:28] LABS: ALBUMIN 3.3 GM/DL (3.4-5.0); DIRECT BILIRUBIN ADULT 0.2 MG/DL (0.0-0.2)
[2017-08-05 16:30] LABS: INDIRECT BILIRUBIN 0.4 MG/DL (0.0-0.8); TOTAL BILIRUBIN ADULT 0.6 MG/DL (0.2-1.0)
--- NOTE | 2017-08-05 16:42 | HM ---
Date Performed: 08/02/2017 Time Performed: 21:22:00 HOOKUP DATE: 08/02/17 09:22:00 PM [facility] ANALYSIS START TIME: 08/02/2017 9:27:00 PM ANALYSIS END TIME: 08/03/2017 9:22:57 PM PATIENT AGE: 87 PATIENT HEIGHT PATIENT WEIGHT DRUG LIST PATIENT DIAGNOSIS: AMS/ACUTE STROKE TEST NARRATIVE: The patient's average heart rate was 78 BPM. No episodes of tachycardia wer e noted. No episodes of bradycardia were noted. No pauses exceeding 2.0 seconds were noted. 157 ventricular ectopics, which represented < 1% of the total beat count, were noted. The highest ve ntricular ectopic frequency occurred from 08:00 PM to 09:00 PM Fri. During this time 19 VE(s) occurr ed. Ventricular ectopics were observed as 149 isolated beat(s) and as 4 couplet(s). No runs were no kunal. 1322 supraventricular ectopics, which represented 1% of the total beat count, were noted. T he highest supraventricular ectopic frequency occurred from 12:00 PM to 01:00 PM Fri. During this ti me 155 SVE(s) occurred. No episodes of ST depression (defined as -1.0 mm or more) were noted in c hannel 1. No episodes of ST depression (defined as -1.0 mm or more) were noted in channel 2. No epi sodes of ST depression (defined as -1.0 mm or more) were noted in channel 3. TEST INTERPRETATION: 24 Hour Holter Monitor-Dr. Angel Maza Patient was monitored for 23 idalia rs and 56 minutes. patient was in a normal Sinus rhythm with an average rate of 78 beats per minute, there were periods of sinus Bradycardia at 55 beats per minute. A maximum heart rate of 117 beats per minute. There were 149 premature ventricular contracti ons, and 1305 premature atrial contractions. There were 2 runs of premature atrial contractions, long est being 4 beats.. There are 4 ventricular couplets. Intermittent baseline artifact limits accuracy of interpretation. Therer does appear to be periods of irregular QRS complexes and due to baseline a rtifact can not tell if it is sinus rhythm with premature atrial contractions or possibly atrial fibr illation. Clinical corrolation is suggested. Signed by : Angel Maza
[2017-08-05] MEDS ORDERED: ACETAMINOPHEN/HYDROcodone 325 MG/5 MG TAB PO PRN (17:00)
[2017-08-05] MEDS ORDERED: METOPROLOL TARTRATE 25 MG TAB PO ONE (20:30)
--- NOTE | 2017-08-05 20:51 | RADRPT ---
EXAM DATE/TIME: 08/05/2017 20:07 [place] COMPARISON: No previous studies available for comparison. INDICATIONS : Abdominal pain. MEDICAL HISTORY : Hypertension. Confusion. Arthritis. SURGICAL HISTORY : Carpal tunnel syndrome. ENCOUNTER: Initial ACUITY: 1 day PAIN SCORE: 5/10 LOCATION: Abdomen. MEASUREMENTS: LIVER: 15.4 cm length COMMON DUCT: 4 mm RIGHT KIDNEY: 10.0 x 3.4 x 4.0 cm LEFT KIDNEY: 8.2 x 4.3 x 4.7 cm SPLEEN: 7.6 cm length AORTA: 1.6 cm maximal FINDINGS: LIVER: Normal echotexture without focal lesion or ductal dilatation. COMMON DUCT: No intraluminal mass or stone visualized. GALLBLADDER: There are multiple stones in the gallbladder. No significant wall thickening or pericholecystic fluid is present. Sonographic Corbin sign is negative. PANCREAS: The visualized portions are within normal limits. RIGHT KIDNEY: No hydronephrosis, stone or mass. There are 2 anechoic avascular lesion is identified. At the upper pole measuring 3.4 cm and at the lower pole measuring 1.4 cm. LEFT KIDNEY: No hydronephrosis, stone or mass. There is a hypoechoic to anechoic lesion at the upper pole measuri ng 1.4 cm. SPLEEN: No focal lesion. AORTA: Non aneurysmal. IVC: Within normal limits. CONCLUSION: 1. No acute finding is identified to explain the abdominal pain. There are stones within the gallblad zoey but no signs of acute gallbladder inflammation are present. 2. Bilateral kidney lesions have features suggesting cysts. Akil Shelby MD on August 05, 2017 at 20:46 Board Certified Radiologist. This report was verified electronically.
[2017-08-06] VITALS (10 sets, daily range): BP systolic 140–162; BP diastolic 89–98; PULSE 92–128; RESP 19–20; TEMP 97.2–98; O2SAT 95–98
[2017-08-06] MEDS: SODIUM CHLOR 0.9% 1000 ML INJ 1,000 ML IV SCH (03:40)
[2017-08-06] MEDS ORDERED: METOPROLOL TARTRATE 25 MG TAB PO ONE (05:45)
[2017-08-06] MEDS: PANTOPRAZOLE SODIUM 40 MG VIAL IV PUSH SCH ×2 (06:20→18:40)
[2017-08-06] MEDS: INSULIN ASPART SUPPLEMENTAL SCALE SQ SCH ×4 (08:00→21:00)
[2017-08-06] MEDS: ASPIRIN 325 MG TAB PO SCH (08:06)
[2017-08-06] MEDS: CLOPIDOGREL 75 MG TAB PO SCH (08:06)
[2017-08-06] MEDS: DOCUSATE SODIUM 50 MG/SENNA 8.6 MG TAB PO SCH ×2 (08:06→22:02)
[2017-08-06] MEDS: HEPARIN SODIUM - SQ 10,000 UNITS/ML VIAL SQ SCH ×2 (08:07→22:05)
[2017-08-06] MEDS: SODIUM CHLORIDE 0.9% FLUSH 10 ML FLUSH IV FLUSH SCH ×2 (08:16→22:12)
[2017-08-06 10:50] LABS: AST (GOT) 30 U/L (15-37); BICARBONATE 22.3 MEQ/L (21.0-32.0); BLOOD UREA NITROGEN 20 MG/DL (7-18); CALCIUM 8.9 MG/DL (8.5-10.1); CHLORIDE 111 MEQ/L (98-107); CREATININE 1.02 MG/DL (0.50-1.00); GLOMERULAR FILTRATION RATE 51 ML/MIN (>89); GLUCOSE,RANDOM 144 MG/DL (74-106); SODIUM (NA) 141 MEQ/L (136-145)
[2017-08-06 10:52] LABS: ALT (GPT) 36 U/L (10-53)
[2017-08-06 10:54] LABS: ALKALINE PHOSPHATASE 100 U/L (45-117); TOTAL BILIRUBIN ADULT 0.5 MG/DL (0.2-1.0); TOTAL PROTEIN 7.5 GM/DL (6.4-8.2)
--- NOTE | 2017-08-06 11:45 | HHI.PR ---
Subjective Remarks F/U abd pain. Denies abd pain. + BM dw RN, pt confused which is not new Objective Vitals Vital Signs Date Time Temp Pulse Resp B/P (MAP) Pulse Ox O2 Delivery O2 Flow Rate FiO2 08/06/17 08:15 99 19 162/98 (119) 97 08/06/17 04:00 97.8 122 20 140/89 (106) 98 08/06/17 03:57 117 08/06/17 00:03 114 08/05/17 23:19 98.0 96 18 146/95 (112) 96 08/05/17 20:22 119 08/05/17 20:00 98.0 125 20 133/96 (108) 96 08/05/17 17:45 98 21 08/05/17 16:03 98.5 123 18 120/69 (86) 98 08/05/17 12:01 98.4 116 18 122/73 (89) 98 I/O 08/05/17 08/05/17 08/05/17 08/06/17 08/06/17 08/06/17 07:00 15:00 23:00 07:00 15:00 23:00 Intake Total 1000 ml 120 ml 1400 ml Output Total 300 ml Balance 1000 ml 120 ml 1100 ml Intake Oral 120 ml 400 ml IV Total 1000 ml 1000 ml Output Urine Total 300 ml # Voids 2 1 2 1 # Bowel Movements 2 Result Diagram: 08/05/17 1120 08/06/17 0936 Imaging Last Impressions Abdomen X-Ray 08/05/17 0000 Signed Impressions: Service Date/Time: Saturday, August 05, 2017 14:29 - CONCLUSION: Normal examination. Caleb Coronado MD Abdomen Ultrasound 08/05/17 0000 Signed Impressions: Service Date/Time: Saturday, August 05, 2017 20:07 - CONCLUSION: 1. No acute finding is identified to explain the abdominal pain. There are stones within the gallbladder but no signs of acute gallbladder inflammation are present. 2. Bilateral kidney lesions have features suggesting cysts. Akil Shelby MD Pelvis X-Ray 08/02/17 1329 Signed Impressions: Service Date/Time: July 14:41 - CONCLUSION: No acute disease. Kristopher Go MD Knee X-Ray 08/02/17 1329 Signed Impressions: Service Date/Time: July 14:44 - CONCLUSION: Advanced arthropathy without evidence of acute fracture or joint effusion. Kristopher Go MD Head CT 08/02/17 1329 Signed Impressions: Service Date/Time: July 14:18 - CONCLUSION: Small wedge-shaped hypodensity in the right parietal lobe which may represent acute to subacute infarct. No evidence of acute hemorrhage or edema. Otherwise normal exam. Kristopher Go MD Chest X-Ray 08/02/17 1329 Signed Impressions: Service Date/Time: July 14:52 - CONCLUSION: Vascular congestion in central interstitial prominence Akil Goldsmith MD Head Magnetic Resonance Angiography 08/02/17 0000 Signed Impressions: Service Date/Time: July 19:01 - CONCLUSION: 1. 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 Exam degraded by motion. Bharath Burns MD Carotid Artery Ultrasound 08/02/17 0000 Signed Impressions: Service Date/Time: July 22:09 - CONCLUSION: 1. Mild plaque without hemodynamically significant stenosis in the carotid arteries. Vertebral artery flow antegrade. Bharath Burns MD Brain MRI 08/02/17 0000 Signed Impressions: Service Date/Time: July 19:01 - CONCLUSION: 1. 2 small infarcts in the right parieto-occipital region with measurements given above. No hemorrhage or significant mass effect and mild white matter ischemic changes. Bharath Burns MD Objective Remarks GENERAL: sitting on recliner, pleasantly confused ENT: Airway patent. NECK: Trachea midline. CARDIOVASCULAR: Regular rate and rhythm without murmurs RESPIRATORY: Clear to auscultation. Breath sounds equal bilaterally. No wheezes GASTROINTESTINAL: Abdomen soft, RUQ tenderness, nondistended. No guarding. MUSCULOSKELETAL: Extremities without edema. No calf tenderness. NEUROLOGICAL: Awake and alert. Normal speech although she is confused. Procedures NOne A/P Problem List: (1) CVA (cerebral vascular accident) ICD Code: I63.9 - Cerebral infarction, unspecified Status: Acute Assessment and Plan CVA. Brain MRI showing 2 small infarcts in the right parieto-occipital region. No hemorrhage. No mass effect. MRA shows occlusion/high grade stenosis of distal r post cerebral art. on ASA/plavix. EF 40-45%. on TELE. neurology following. speech therapy following. rehab medicine following. PT also following and recommend rehab. CM assisting w d/c planning. LDL 61 Abdominal pain: RUQ tenderness. + BM. US with gallstones. Consult GS elevated Trop: discussed w Dr. Suggs and for now continue conservative management. no intervention HTN: BP's stable. continue to monitor closely. DVt proph: SCD. Discharge Planning Rehab when cleared by Daryl Singh MD Aug 06, 2017 11:45
--- NOTE | 2017-08-06 15:01 | PD.CONS ---
cc: Gustavo Norman MD [facility] Service General Surgery Consult Requested By Dr. Singh Reason for Consult RUQ tenderness Primary Care Physician Unknown History of Present Illness This is an 87 year old female with a past medical history of vertigo, hypertension, arthritis, carpal tunnel and chronic sinusitis. The patient comes in the Emergency Department after being found at her Assisted Living Facility on the bathroom floor. She was found to have a right parietaloccipital CVA. She's been started on aspirin and Plavix. She has complained of a diffuse generalized abdominal pain over the last few days that has actually decreased. Family reports she has early satiety. Her family is also the bedside reports severe cognitive defects since the CVA. An ultrasound of the abdomen was obtained which shows gallstones but no inflammation. Her labs are essentially unremarkable. A General Surgery consultation has been requested. Review of Systems ROS Limitations: Clinical Condition, Altered Mental Status Past Family Social History Past Medical History Vertigo Hypertension Arthritis Carpal tunnel Chronic sinusitis Past Surgical History Hysterectomy Orthopedic procedures Carpal tunnel release Reported Medications Losartan Aspirin Lyrica Trazodone Potassium replacement Furosemide Mucinex Allergies: Coded Allergies: No Known Allergies (Unverified , 08/02/17) Active Ordered Medications Current Medications Medications (Trade) Dose Ordered Sig/Harlan Route Start Time Stop Time Status Last Admin (Vasotec Inj) 1.25 mg Q4H PRN IV PUSH 08/02/17 17:15 (Trandate Inj) 10 mg Q2H PRN IV PUSH 08/02/17 17:15 (Aspirin) 325 mg DAILY PO 08/03/17 09:00 08/06/17 08:06 (Heparin Inj) 5,000 units Q8H SQ 08/02/17 17:15 Future Hold 08/02/17 17:23 (Tylenol) 650 mg Q4H PRN PO 08/02/17 19:00 08/05/17 03:37 (Zofran Inj) 4 mg Q6H PRN IVP 08/02/17 19:00 08/05/17 10:44 (Narcan Inj) 0.4 mg UNSCH PRN IV PUSH 08/02/17 19:00 (Nan-Colace) 1 tab BID PO 08/02/17 21:00 08/06/17 08:06 (Milk Of Magnesia Liq) 30 ml Q12H PRN PO 08/02/17 19:00 (Senokot) 17.2 mg Q12H PRN PO 08/02/17 19:00 (Protonix Inj) 40 mg Q12H IV PUSH 08/03/17 06:00 08/06/17 06:20 (Nitrostat Sl) 0.4 mg Q5M PRN SL 08/03/17 08:30 (Morphine Inj) 1 mg Q30M PRN IV PUSH 08/03/17 08:30 (NS Flush) 2 ml BID IV FLUSH 08/03/17 21:00 08/06/17 08:16 (NS Flush) 2 ml UNSCH PRN IV FLUSH 08/03/17 18:30 Sodium Chloride 1,000 ml @ 70 mls/hr [id number] IV 08/03/17 18:25 08/06/17 03:40 (Plavix) 75 mg DAILY PO 08/03/17 19:00 08/06/17 08:06 (NovoLOG SUPPLEMENTAL SCALE) 1 ACHS SQ 08/03/17 21:00 (D50w (Vial) Inj) 50 ml UNSCH PRN IV PUSH 08/03/17 18:30 (Glucagon Inj) 1 mg UNSCH PRN OTHER 08/03/17 18:30 (Heparin Inj) 5,000 units Q12HR SQ 08/04/17 21:00 08/06/17 08:07 ([place] 5-325 Mg) 1 tab Q6H PRN PO 08/05/17 17:00 08/05/17 21:34 Family History Noncontributory Social History Denies tobacco use Denies EtOH use Denies illicit drug use Patient lives with her at a local assisted living facility. Physical Exam Vital Signs Vital Signs Date Time Temp Pulse Resp B/P (MAP) Pulse Ox O2 Delivery O2 Flow Rate FiO2 08/06/17 12:08 97.2 103 19 153/94 (113) 95 08/06/17 08:15 99 19 162/98 (119) 97 08/06/17 04:00 97.8 122 20 140/89 (106) 98 08/06/17 03:57 117 08/06/17 00:03 114 08/05/17 23:19 98.0 96 18 146/95 (112) 96 08/05/17 20:22 119 08/05/17 20:00 98.0 125 20 133/96 (108) 96 08/05/17 17:45 98 21 08/05/17 16:03 98.5 123 18 120/69 (86) 98 Physical Exam GENERAL: Pleasantly confused 87 year old female resting in bed in no acute distress. SKIN: Warm and dry. HEAD: Atraumatic. Normocephalic. EYES: Pupils equal and round. No scleral icterus. No injection or drainage. ENT: No nasal bleeding or discharge. Mucous membranes pink and moist. NECK: Trachea midline. CARDIOVASCULAR: Regular rate and rhythm. RESPIRATORY: No accessory muscle use. Clear to auscultation. Breath sounds equal bilaterally. GASTROINTESTINAL: Abdomen soft, non-tender, nondistended. Many nevi over abdomen. MUSCULOSKELETAL: Extremities without clubbing, cyanosis, or edema. No obvious deformities. NEUROLOGICAL: Awake and alert. No obvious cranial nerve deficits. Motor grossly within normal limits. Five out of 5 muscle strength in the arms and legs. Normal speech. PSYCHIATRIC: Confused. Laboratory Laboratory Tests Test 08/06/17 09:36 Blood Urea Nitrogen 20 Creatinine 1.02 Random Glucose 144 Total Protein 7.5 Albumin 3.0 Calcium Level 8.9 Alkaline Phosphatase 100 Aspartate Amino Transf (AST/SGOT) 30 Alanine Aminotransferase (ALT/SGPT) 36 Total Bilirubin 0.5 Sodium Level 141 Potassium Level 3.9 Chloride Level 111 Carbon Dioxide Level 22.3 Anion Gap 8 Estimat Glomerular Filtration Rate 51 Date/Time Source Procedure Growth Status 08/02/17 14:05 Blood Peripheral Aerobic Blood Culture - Preliminary NO GROWTH IN 4 DAYS Resulted 08/02/17 14:05 Blood Peripheral Anaerobic Blood Culture - Preliminary NO GROWTH IN 4 DAYS Resulted Result Diagram: 08/05/17 1120 08/06/17 0936 Imaging Last 48 hours Impressions Abdomen X-Ray 08/05/17 0000 Signed Impressions: Service Date/Time: Saturday, August 05, 2017 14:29 - CONCLUSION: Normal examination. Caleb Coronado MD Abdomen Ultrasound 08/05/17 0000 Signed Impressions: Service Date/Time: Saturday, August 05, 2017 20:07 - CONCLUSION: 1. No acute finding is identified to explain the abdominal pain. There are stones within the gallbladder but no signs of acute gallbladder inflammation are present. 2. Bilateral kidney lesions have features suggesting cysts. Akil Shelby MD Assessment and Plan Assessment and Plan 87 year old female s/p RIGHT parieto-occipital CVA; generalized abdominal pain -US shows gallstones without inflammation -Diet as tolerated -Continue aspirin and Plavix -Had discussion with patient's daughter who is also her POA--- they desire no invasive interventions as this time and note that the abdominal pain is getting better. -Thank you for this consult; General Surgery will sign off. Discussed Condition With Dr. Emerson Singh Mr. and Mrs. Guerrero + daughter at bedside Attending Statement The exam, history, and the medical decision-making described in the above note were completed with the assistance of the mid-level provider. I reviewed and agree with the findings presented. I attest that I had a [id number] encounter with the patient on the same day, and personally performed and documented my assessment and findings in the medical record. patient with Gallstones, likely symptomatic gallstones without any significant cholecystitis or infection d/w family, family does not want surgery recommend short course of ABX and low fat diet. palliation appropriate will sign off Charlotte Calhoun/[facility] Itzel MCNEILL Aug 06, 2017 15:01 Gustavo Norman MD Aug 07, 2017 11:02
--- NOTE | 2017-08-06 15:37 | PD.CARD.PN ---
Subjective Subjective Remarks No CP or SOB, no abdominal pain, very confused Objective Medications Current Medications Medications (Trade) Dose Ordered Sig/Harlan Route Start Time Stop Time Status Last Admin (Vasotec Inj) 1.25 mg Q4H PRN IV PUSH 08/02/17 17:15 (Trandate Inj) 10 mg Q2H PRN IV PUSH 08/02/17 17:15 (Aspirin) 325 mg DAILY PO 08/03/17 09:00 08/06/17 08:06 (Heparin Inj) 5,000 units Q8H SQ 08/02/17 17:15 Future Hold 08/02/17 17:23 (Tylenol) 650 mg Q4H PRN PO 08/02/17 19:00 08/05/17 03:37 (Zofran Inj) 4 mg Q6H PRN IVP 08/02/17 19:00 08/05/17 10:44 (Narcan Inj) 0.4 mg UNSCH PRN IV PUSH 08/02/17 19:00 (Nan-Colace) 1 tab BID PO 08/02/17 21:00 08/06/17 08:06 (Milk Of Magnesia Liq) 30 ml Q12H PRN PO 08/02/17 19:00 (Senokot) 17.2 mg Q12H PRN PO 08/02/17 19:00 (Protonix Inj) 40 mg Q12H IV PUSH 08/03/17 06:00 08/06/17 06:20 (Nitrostat Sl) 0.4 mg Q5M PRN SL 08/03/17 08:30 (Morphine Inj) 1 mg Q30M PRN IV PUSH 08/03/17 08:30 (NS Flush) 2 ml BID IV FLUSH 08/03/17 21:00 08/06/17 08:16 (NS Flush) 2 ml UNSCH PRN IV FLUSH 08/03/17 18:30 (Plavix) 75 mg DAILY PO 08/03/17 19:00 08/06/17 08:06 (NovoLOG SUPPLEMENTAL SCALE) 1 ACHS SQ 08/03/17 21:00 (D50w (Vial) Inj) 50 ml UNSCH PRN IV PUSH 08/03/17 18:30 (Glucagon Inj) 1 mg UNSCH PRN OTHER 08/03/17 18:30 (Heparin Inj) 5,000 units Q12HR SQ 08/04/17 21:00 08/06/17 08:07 ([place] 5-325 Mg) 1 tab Q6H PRN PO 08/05/17 17:00 08/05/17 21:34 (Albuterol Neb) 2.5 mg Q2HR NEB PRN NEB 08/06/17 16:00 (Albuterol Neb) 2.5 mg QID NEB NEB 08/06/17 16:00 Vital Signs / I&O Vital Signs Date Time Temp Pulse Resp B/P (MAP) Pulse Ox O2 Delivery O2 Flow Rate FiO2 08/06/17 12:08 97.2 103 19 153/94 (113) 95 08/06/17 08:15 99 19 162/98 (119) 97 08/06/17 04:00 97.8 122 20 140/89 (106) 98 08/06/17 03:57 117 08/06/17 00:03 114 08/05/17 23:19 98.0 96 18 146/95 (112) 96 08/05/17 20:22 119 08/05/17 20:00 98.0 125 20 133/96 (108) 96 08/05/17 17:45 98 21 08/05/17 16:03 98.5 123 18 120/69 (86) 98 I/O 08/05/17 08/05/17 08/05/17 08/06/17 08/06/17 08/06/17 07:00 15:00 23:00 07:00 15:00 23:00 Intake Total 1000 ml 120 ml 1400 ml 120 ml Output Total 300 ml Balance 1000 ml 120 ml 1100 ml 120 ml Intake Oral 120 ml 400 ml 120 ml IV Total 1000 ml 1000 ml Output Urine Total 300 ml # Voids 2 1 2 2 # Bowel Movements 2 1 Physical Exam GENERAL: In NAD SKIN: Warm and dry. HEAD: Normocephalic. EYES: No scleral icterus. No injection or drainage. NECK: Supple, trachea midline. No JVD or lymphadenopathy. CARDIOVASCULAR: Regular rate and rhythm without murmurs, gallops, or rubs. RESPIRATORY: Breath sounds equal bilaterally. No accessory muscle use. GASTROINTESTINAL: Abdomen soft, non-tender, nondistended. MUSCULOSKELETAL: No cyanosis, or edema. Laboratory Laboratory Tests Test 08/06/17 09:36 Blood Urea Nitrogen 20 MG/DL Creatinine 1.02 MG/DL Random Glucose 144 MG/DL Total Protein 7.5 GM/DL Albumin 3.0 GM/DL Calcium Level 8.9 MG/DL Alkaline Phosphatase 100 U/L Aspartate Amino Transf (AST/SGOT) 30 U/L Alanine Aminotransferase (ALT/SGPT) 36 U/L Total Bilirubin 0.5 MG/DL Sodium Level 141 MEQ/L Potassium Level 3.9 MEQ/L Chloride Level 111 MEQ/L Carbon Dioxide Level 22.3 MEQ/L Anion Gap 8 MEQ/L Estimat Glomerular Filtration Rate 51 ML/MIN Assessment and Plan Problem List: (1) CVA (cerebral vascular accident) ICD Codes: I63.9 - Cerebral infarction, unspecified Status: Acute (2) Elevated troponin ICD Codes: R74.8 - Abnormal levels of other serum enzymes Status: Acute (3) Cardiomyopathy ICD Codes: I42.9 - Cardiomyopathy, unspecified (4) HTN (hypertension) ICD Codes: I10 - Essential (primary) hypertension (5) Altered mental status ICD Codes: R41.82 - Altered mental status, unspecified Status: Acute (6) Confusion ICD Codes: R41.0 - Disorientation, unspecified Assessment and Plan No new cardiac issues, remains stable from cardiac standpoint. Echo with mild LV dysfunction with distal and AA hypokinesis. Continue current program including cardiac risk factor modification. Continue therapy for CM/CHF. Increase activity, PT. Anticipate discharge soon. Carrillo Suggs MD Aug 06, 2017 15:37
[2017-08-06] MEDS ORDERED: RESP: ALBUTEROL 2.5 MG/3 ML NEB (PRN) NEB (16:00)
[2017-08-06] MEDS: RESP: ALBUTEROL 2.5 MG/3 ML NEB (SCH) NEB ×2 (17:50→20:00)
--- NOTE | 2017-08-06 22:58 | EKG ---
Date Performed: 08/05/2017 Time Performed: 21:41:57 PTAGE: 87 years EKG: ATRIAL FIBRILLATION WITH RAPID VENTRICULAR RESPONSE NONSPECIFIC ST & T-WAVE ABNORMALITY ABN ORMAL RHYTHM ECG PREVIOUS TRACING : 08/03/2017 02.43 DOCTOR: Bhavana Gonzalez Interpretating Date/Time 08/06/2017 22:52:04
[2017-08-07] VITALS (14 sets, daily range): BP systolic 121–164; BP diastolic 73–107; PULSE 84–130; RESP 18–22; TEMP 97.4–99.7; O2SAT 96–99
[2017-08-07] MEDS ORDERED: METOPROLOL TARTRATE 25 MG TAB PO ONE (02:15)
[2017-08-07] MEDS: INSULIN ASPART SUPPLEMENTAL SCALE SQ SCH ×2 (08:00→12:58)
[2017-08-07] MEDS: CLOPIDOGREL 75 MG TAB PO SCH (08:28)
[2017-08-07] MEDS: ASPIRIN 325 MG TAB PO SCH (08:28)
[2017-08-07] MEDS: DOCUSATE SODIUM 50 MG/SENNA 8.6 MG TAB PO SCH ×2 (08:29→20:45)
[2017-08-07] MEDS: HEPARIN SODIUM - SQ 10,000 UNITS/ML VIAL SQ SCH (08:30)
[2017-08-07] MEDS ORDERED: METOPROLOL TARTRATE 25 MG TAB PO SCH (09:00)
[2017-08-07] MEDS: SODIUM CHLORIDE 0.9% FLUSH 10 ML FLUSH IV FLUSH SCH ×2 (09:00→20:45)
[2017-08-07] MEDS: RESP: ALBUTEROL 2.5 MG/3 ML NEB (SCH) NEB (09:14)
[2017-08-07] MEDS ORDERED: DILTIAZEM INJ 125 MG in SODIUM CHLORIDE 0.9% INJ 100 ML IV PRN (10:30)
[2017-08-07] MEDS ORDERED: DILTIAZEM HCL 25 MG/5 ML VIAL IV ONE (11:00)
--- NOTE | 2017-08-07 12:08 | PD.CARD.PN ---
Subjective Subjective Remarks No CP or SOB, very confused, no c/o Objective Medications Current Medications Medications (Trade) Dose Ordered Sig/[place] Route Start Time Stop Time Status Last Admin (Vasotec Inj) 1.25 mg Q4H PRN IV PUSH 08/02/17 17:15 (Trandate Inj) 10 mg Q2H PRN IV PUSH 08/02/17 17:15 (Heparin Inj) 5,000 units Q8H SQ 08/02/17 17:15 Future Hold 08/02/17 17:23 (Tylenol) 650 mg Q4H PRN PO 08/02/17 19:00 08/05/17 03:37 (Zofran Inj) 4 mg Q6H PRN IVP 08/02/17 19:00 08/05/17 10:44 (Narcan Inj) 0.4 mg UNSCH PRN IV PUSH 08/02/17 19:00 (Nan-Colace) 1 tab BID PO 08/02/17 21:00 08/07/17 08:29 (Milk Of Magnesia Liq) 30 ml Q12H PRN PO 08/02/17 19:00 (Senokot) 17.2 mg Q12H PRN PO 08/02/17 19:00 (Nitrostat Sl) 0.4 mg Q5M PRN SL 08/03/17 08:30 (Morphine Inj) 1 mg Q30M PRN IV PUSH 08/03/17 08:30 (NS Flush) 2 ml BID IV FLUSH 08/03/17 21:00 08/07/17 09:00 (NS Flush) 2 ml UNSCH PRN IV FLUSH 08/03/17 18:30 (NovoLOG SUPPLEMENTAL SCALE) 1 ACHS SQ 08/03/17 21:00 (D50w (Vial) Inj) 50 ml UNSCH PRN IV PUSH 08/03/17 18:30 (Glucagon Inj) 1 mg UNSCH PRN OTHER 08/03/17 18:30 ([place] 5-325 Mg) 1 tab Q6H PRN PO 08/05/17 17:00 08/05/17 21:34 (Albuterol Neb) 2.5 mg Q2HR NEB PRN NEB 08/06/17 16:00 (Lopressor) 25 mg Q8HR PO 08/07/17 14:00 Diltiazem HCl 125 mg/Sodium Chloride 125 ml @ 5 mls/hr TITRATE PRN IV 08/07/17 10:30 (Eliquis) 5 mg BID PO 08/07/17 21:00 UNV Vital Signs / I&O Vital Signs Date Time Temp Pulse Resp B/P (MAP) Pulse Ox O2 Delivery O2 Flow Rate FiO2 08/07/17 11:46 111 20 144/107 (119) 96 08/07/17 11:37 97.4 112 18 142/96 (111) 96 08/07/17 10:45 113 22 141/102 (115) 99 08/07/17 08:00 98.2 112 18 153/95 (114) 97 08/07/17 04:00 97.4 109 20 164/91 (115) 96 08/07/17 04:00 108 08/07/17 02:15 128/87 (101) 08/07/17 00:00 98 08/07/17 00:00 99.7 109 20 150/73 (98) 98 08/06/17 20:25 98 08/06/17 20:00 98.0 128 20 154/89 (110) 97 08/06/17 16:22 97.3 92 19 141/93 (109) 97 08/06/17 12:08 97.2 103 19 153/94 (113) 95 I/O 08/06/17 08/06/17 08/06/17 08/07/17 08/07/17 08/07/17 07:00 15:00 23:00 07:00 15:00 23:00 Intake Total 1400 ml 120 ml Output Total 300 ml Balance 1100 ml 120 ml Intake Oral 400 ml 120 ml IV Total 1000 ml Output Urine Total 300 ml # Voids 2 2 1 2 # Bowel Movements 2 1 1 1 Physical Exam GENERAL: In NAD SKIN: Warm and dry. HEAD: Normocephalic. EYES: No scleral icterus. No injection or drainage. NECK: Supple, trachea midline. No JVD or lymphadenopathy. CARDIOVASCULAR: Regular rate and rhythm without murmurs, gallops, or rubs. RESPIRATORY: Breath sounds equal bilaterally. No accessory muscle use. GASTROINTESTINAL: Abdomen soft, non-tender, nondistended. MUSCULOSKELETAL: No cyanosis, or edema. Assessment and Plan Problem List: (1) CVA (cerebral vascular accident) ICD Codes: I63.9 - Cerebral infarction, unspecified Status: Acute (2) Elevated troponin ICD Codes: R74.8 - Abnormal levels of other serum enzymes Status: Acute (3) Cardiomyopathy ICD Codes: I42.9 - Cardiomyopathy, unspecified (4) HTN (hypertension) ICD Codes: I10 - Essential (primary) hypertension (5) Altered mental status ICD Codes: R41.82 - Altered mental status, unspecified Status: Acute (6) Confusion ICD Codes: R41.0 - Disorientation, unspecified Assessment and Plan Remains stable from cardiac standpoint. Remains very confused, has severe dementia. Echo with mild LV dysfunction with distal and AA hypokinesis. Continue current program including cardiac risk factor modification. Continue therapy for CM/CHF. Increase activity, PT. Anticipate discharge to [facility] soon. Carrillo Suggs MD Aug 07, 2017 12:08
--- NOTE | 2017-08-07 12:36 | RADRPT ---
EXAM DATE/TIME: 08/07/2017 11:43 [facility] COMPARISON: CHEST SINGLE AP, August 02, 2017, 14:52. INDICATIONS : Shortness of breath and congestion. MEDICAL HISTORY : Venous insufficiency. Hypertension. Confusion. Arthritis. SURGICAL HISTORY : Carpal tunnel syndrome. ENCOUNTER: Subsequent ACUITY: 1 day PAIN SCORE: 0/10 LOCATION: Bilateral chest FINDINGS: A single view of the chest demonstrates bilateral mostly basilar airspace disease with small effusion s. Heart size mildly enlarged. No pneumothorax. CONCLUSION: 1. Mild basilar airspace disease with small effusions. Differential diagnosis includes pulmonary alise a. Cannot exclude infection. Bharath Burns MD on August 07, 2017 at 12:32 Board Certified Radiologist. This report was verified electronically.
[2017-08-07] MEDS ORDERED: FUROSEMIDE 20 MG/2 ML VIAL IV PUSH ONE (13:15)
--- NOTE | 2017-08-07 13:22 | HHI.HCPN ---
Reason for visit a. To assist with evaluation and management of symptoms including: Pain, confusion b. To assist medical decision maker(s) with: better understanding of current medical conditions; weighing benefits/burdens of medical treatment options; making medical treatment decisions. Subjective/Interval History She is seen today to follow-up on symptom management and goals of care. She complained of dyspnea on evaluation today by Dr. Singh, who found that she had developed atrial fibrillation with rapid ventricular response overnight, heart rate to 150. Received Cardizem bolus and drip overnight, now started on metoprolol 25 mg every 8 hours and apixaban 5 mg p.o. twice daily. This has significantly improved her dyspnea which she stated was constant and felt as though she had difficulty inhaling air into her lungs. Her speech is much clearer than previous assessment. She is able to express herself well. Some remote memory loss is noted but her confusion is much improved. She had previously complained of mild right upper quadrant tenderness and was evaluated by surgery with an abdominal ultrasound which showed gallstones without inflammation. Family has declined any procedural interventions, pain has now subsided and general surgery has signed off. Clinical data * Laboratory: Sodium 141, potassium 3.9, BUN 20, creatinine 1.02, GFR 51, troponin trended down from 1.5-0.26, albumin 3.0, WBC 10.8, hemoglobin 12.6, hematocrit 37.5, platelets 196. * Vital signs: Blood pressure 144/107, heart rate 111, respiratory rate 20, oxygen saturation 96% on room air, afebrile. It was initially planned for her to be discharged today but that has been held due to the episode of atrial fibrillation with RVR overnight. Speech therapy has cleared her for thin liquids and a regular diet. Occupational therapy recommends continued therapy at rehab. Physical therapy notes a very slow shuffling gait and recommends continued PT at rehab. Abdominal pain which had previously been her complaint over the weekend is now resolved. . Family/friend interactions Spoke with the daughter, Brisa, and provided update as to clinical findings with her mother today and episode of atrial fibrillation overnight. We discussed anticoagulant and rate control medications as well as her mother's progress in speaking and memory. She states that the mother has been able to recognize more names of family members every day and she has noticed the improvement. In the 4 days since I had last seen the patient I see significant improvement since her baseline. Discussed the possibility of discharge tomorrow depending on her response to rate control medications and whether the atrial fibrillation rate remains controlled. She expressed appreciation for the call and understanding of plan. . Advance Directives Living Will: Copy in medical record Health Care Surrogate: Copy in medical record Durable Power of Sales Incentive Analyst: Copy in medical record Advance Directive Specifics Health Care Surrogate(s): Their daughter, Brisa Newton is their healthcare surrogate and POA. . Documented care wishes: Standard Living Will verbiage. . Objective Vital Signs Date Time Temp Pulse Resp B/P (MAP) Pulse Ox O2 Delivery O2 Flow Rate FiO2 08/07/17 11:46 111 20 144/107 (119) 96 08/07/17 11:37 97.4 112 18 142/96 (111) 96 08/07/17 10:45 113 22 141/102 (115) 99 08/07/17 08:00 98.2 112 18 153/95 (114) 97 08/07/17 04:00 97.4 109 20 164/91 (115) 96 08/07/17 04:00 108 08/07/17 02:15 128/87 (101) 08/07/17 00:00 98 08/07/17 00:00 99.7 109 20 150/73 (98) 98 08/06/17 20:25 98 08/06/17 20:00 98.0 128 20 154/89 (110) 97 08/06/17 16:22 97.3 92 19 141/93 (109) 97 Intake & Output 08/07/17 08/07/17 07:00 19:00 # Voids 2 # Bowel Movements 1 Physical Exam CONSTITUTIONAL/GENERAL: This is an adequately nourished patient, in no apparent distress. TUBES/LINES/DRAINS: PIV LFA SKIN: No jaundice, rashes, or lesions. Ecchymoses on upper extremities. No wounds seen anteriorly. Skin temperature appropriate. Not diaphoretic. HEAD: Atraumatic. Normocephalic. EYES: Pupils equal and round and reactive. Extraocular motions intact. No scleral icterus. No injection or drainage. Fundi not examined. ENT: Hearing grossly normal. Nose without bleeding or purulent drainage. Throat without visible erythema, exudates, masses, or lesions. NECK: Trachea midline. Supple, nontender. No palpable thyroid enlargement or nodularity. CARDIOVASCULAR: S1, S2, irregular rhythm, intermittently tachycardic rate, no rub murmur or gallop. RESPIRATORY/CHEST: Symmetric, unlabored respirations. Clear to auscultation. Breath sounds equal bilaterally. No wheezes, rales, or rhonchi. GASTROINTESTINAL: Abdomen soft, non-tender, nondistended. No hepato-splenomegaly , or palpable masses. No guarding. Bowel sounds present. GENITOURINARY: Without palpable bladder distension. MUSCULOSKELETAL: Extremities without clubbing, cyanosis, or edema. No joint tenderness or effusion noted. No calf tenderness. No mottling or clubbing. NEUROLOGICAL: Awake and alert. Speech clear today with some delay in replying. Right mouth droop noted. Some remote memory deficit noted. PSYCHIATRIC: Calm, cooperative. . Diagnostic Tests Laboratory Laboratory Tests Test 08/05/17 11:20 08/06/17 09:36 White Blood Count 10.8 TH/MM3 (4.0-11.0) Red Blood Count 3.98 MIL/MM3 (4.00-5.30) Hemoglobin 12.6 GM/DL (11.6-15.3) Hematocrit 37.5 % (35.0-46.0) Mean Corpuscular Volume 94.2 FL (80.0-100.0) Mean Corpuscular Hemoglobin 31.6 PG (27.0-34.0) Mean Corpuscular Hemoglobin Concent 33.5 % (32.0-36.0) Red Cell Distribution Width 13.8 % (11.6-17.2) Platelet Count 196 TH/MM3 (150-450) Mean Platelet Volume 10.1 FL (7.0-11.0) Neutrophils (%) (Auto) 74.2 % (16.0-70.0) Lymphocytes (%) (Auto) 17.7 % (9.0-44.0) Monocytes (%) (Auto) 7.2 % (0.0-8.0) Eosinophils (%) (Auto) 0.2 % (0.0-4.0) Basophils (%) (Auto) 0.7 % (0.0-2.0) Neutrophils # (Auto) 8.0 TH/MM3 (1.8-7.7) Lymphocytes # (Auto) 1.9 TH/MM3 (1.0-4.8) Monocytes # (Auto) 0.8 TH/MM3 (0-0.9) Eosinophils # (Auto) 0.0 TH/MM3 (0-0.4) Basophils # (Auto) 0.1 TH/MM3 (0-0.2) CBC Comment AUTO DIFF Differential Comment AUTO DIFF CONFIRMED Blood Urea Nitrogen 18 MG/DL (7-18) 20 MG/DL (7-18) Creatinine 1.03 MG/DL (0.50-1.00) 1.02 MG/DL (0.50-1.00) Random Glucose 109 MG/DL (74-106) 144 MG/DL (74-106) Total Protein 8.0 GM/DL (6.4-8.2) 7.5 GM/DL (6.4-8.2) Albumin 3.3 GM/DL (3.4-5.0) 3.0 GM/DL (3.4-5.0) Calcium Level 9.1 MG/DL (8.5-10.1) 8.9 MG/DL (8.5-10.1) Alkaline Phosphatase 85 U/L (45-117) 100 U/L (45-117) Aspartate Amino Transf (AST/SGOT) 27 U/L (15-37) 30 U/L (15-37) Alanine Aminotransferase (ALT/SGPT) 32 U/L (10-53) 36 U/L (10-53) Total Bilirubin 0.6 MG/DL (0.2-1.0) 0.5 MG/DL (0.2-1.0) Direct Bilirubin 0.2 MG/DL (0.0-0.2) Sodium Level 141 MEQ/L (136-145) 141 MEQ/L (136-145) Potassium Level 3.9 MEQ/L (3.5-5.1) 3.9 MEQ/L (3.5-5.1) Chloride Level 111 MEQ/L (98-107) 111 MEQ/L (98-107) Carbon Dioxide Level 22.3 MEQ/L (21.0-32.0) 22.3 MEQ/L (21.0-32.0) Anion Gap 8 MEQ/L (5-15) 8 MEQ/L (5-15) Estimat Glomerular Filtration Rate 50 ML/MIN (>89) 51 ML/MIN (>89) Indirect Bilirubin 0.4 MG/DL (0.0-0.8) Troponin I 0.26 NG/ML (0.02-0.05) Lipase 90 U/L (73-393) . Result Diagram: 08/05/17 1120 08/06/17 0936 Microbiology Microbiology Date/Time Source Procedure Growth Status 08/02/17 14:05 Blood Peripheral Aerobic Blood Culture - Final NO GROWTH IN 5 DAYS Complete 08/02/17 14:05 Blood Peripheral Anaerobic Blood Culture - Final NO GROWTH IN 5 DAYS Complete . Imaging Last Impressions Abdomen X-Ray 08/05/17 0000 Signed Impressions: Service Date/Time: Saturday, August 05, 2017 14:29 - CONCLUSION: Normal examination. Caleb Coronado MD Abdomen Ultrasound 08/05/17 0000 Signed Impressions: Service Date/Time: Saturday, August 05, 2017 20:07 - CONCLUSION: 1. No acute finding is identified to explain the abdominal pain. There are stones within the gallbladder but no signs of acute gallbladder inflammation are present. 2. Bilateral kidney lesions have features suggesting cysts. Akil Shelby MD Pelvis X-Ray 08/02/171328 Signed Impressions: Service Date/Time: July 14:41 - CONCLUSION: No acute disease. Kristopher Go MD Knee X-Ray 08/02/171328 Signed Impressions: Service Date/Time: July 14:44 - CONCLUSION: Advanced arthropathy without evidence of acute fracture or joint effusion. Kristopher Go MD Head CT 08/02/171328 Signed Impressions: Service Date/Time: July 14:18 - CONCLUSION: Small wedge-shaped hypodensity in the right parietal lobe which may represent acute to subacute infarct. No evidence of acute hemorrhage or edema. Otherwise normal exam. Kristopher Go MD Chest X-Ray 08/02/171328 Signed Impressions: Service Date/Time: July 14:52 - CONCLUSION: Vascular congestion in central interstitial prominence Akil Goldsmith MD Head Magnetic Resonance Angiography 08/02/17 0000 Signed Impressions: Service Date/Time: July 19:01 - CONCLUSION: 1. 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 Exam degraded by motion. Bharath Burns MD Carotid Artery Ultrasound 08/02/17 0000 Signed Impressions: Service Date/Time: July 22:09 - CONCLUSION: 1. Mild plaque without hemodynamically significant stenosis in the carotid arteries. Vertebral artery flow antegrade. Bharath Burns MD Brain MRI 08/02/17 0000 Signed Impressions: Service Date/Time: July 19:01 - CONCLUSION: 1. 2 small infarcts in the right parieto-occipital region with measurements given above. No hemorrhage or significant mass effect and mild white matter ischemic changes. Bharath Burns MD . Assessment and Plan Disease Oriented Problem List: (1) CVA (cerebral vascular accident) (2) Elevated troponin (3) Altered mental status Symptom Scale: (1) Confusion 0-10 Scale: Unable to quantify (Status post CVA right posterior cerebral artery.) (2) Pain, generalized 0-10 Scale: Unable to quantify (Confused, unable to specify area of discomfort but complains of pain.) Pertinent Non-Medical Issues Psychosocial:Born in [facility], 1 of 10 children. She finished school, and raised her children there. She has been to her for 70 years. 5 years ago they moved to [place] after many years of snowbirding between both [facility]. She and her currently live together in an [facility] Spiritual: Seventh-day Nondenominational. Legal: Their daughter Brisa provided copies of the healthcare surrogate, living will and power of senior trial attorney. Ethical issues impacting care: None noted. . Important Contacts Daughter: Brisa Newton Son: Marin Yolanda Son: Tobin Yolanda Son-in-law: Dr. Paul Newton . Prognosis Her prognosis is guarded. 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 Cardiology has seen her and recommended stopping the heparin drip and continue with aspirin. No cardiac intervention is planned. 2D echocardiogram shows an ejection fraction of 40-45 % with cornelia-apical and distal anteroseptal hypokinesis, moderately dilated atrium bilaterally, mild to moderate MR, mild TR and estimated pulmonary artery pressure of 51 mmHg.. She has passed her swallow evaluation but is having slight difficulty expressing her thoughts. Family is requesting a DO NOT RESUSCITATE status. She has been cleared by speech therapy and recommended to continue occupational and physical therapy at rehab. She has now developed atrial fibrillation with rapid ventricular response and will require rate modification medications and anticoagulation. . Code Status: No Code Plan PLAN: Legal decision maker: Daughter Brisa is the healthcare surrogate and she is coordinating all decisions with her 2 brothers. Goals: Comfort oriented CODE STATUS: DNR SYMPTOMS: * Confusion: Confusion is improving. She is able to answer questions clearly today with a slight delay before speaking. Her speech is improving and is able to make her needs known. * Pain: She had previously complained of right upper quadrant abdominal pain and general surgery was consulted but has signed off has abdominal pain was improving, no cause was found and family is refusing procedural intervention. At this time she has no discomfort. She has morphine and [place] available as needed. She has taken no pain medications in the last 24 hours. * Dyspnea: She complained of dyspnea this morning and was found to be in atrial fibrillation with rapid ventricular response. She has received Cardizem has been started on metoprolol and heart rate is now in the normal range, still in atrial fibrillation. Eliquis 5 mg p.o. twice daily has been initiated for thromboembolic prophylaxis. Dyspnea is improving with better heart rate control. Palliative care will continue to follow the patient during hospital course as condition evolves, to assist patient/decision-maker with understanding of their medical conditions, weighing benefits/burdens of treatment options, for clarification of goals of treatment. Additionally will assist with any symptoms of palliative concern. . Attestation To help prompt me to consider important information that might be impacting today's encounter and assessment, information from prior notes written by myself or my colleagues may have been "brought forward" into today's note. My signature on this note, however, is an attestation that I personally performed the exam, history, and/or decision-making noted today, and, unless otherwise indicated, the interactions with patient, family, and staff as well as the review of records all occurred today. I also attest that the listed assessment and stated plan reflect my best clinical judgment today based on the combination of historical information, prior notes, and today's exam/ interactions. When time spent is documented, it refers only to time spent today by the signer, or if indicated, combined time spent today by collaborating physician/nurse practitioner. . Payton Rae Aug 07, 2017 13:22
[2017-08-07] MEDS: METOPROLOL TARTRATE 25 MG TAB PO SCH ×2 (14:07→20:45)
--- NOTE | 2017-08-07 15:01 | HHI.PR ---
Subjective Remarks Follow-up CVA. Patient complains of difficulty with breathing. Patient developed A. fib overnight denies chest pain, palpitations and dizziness. Discussed with neurology, okay to start Eliquis. Family updated. Also discussed with general surgery, recommended antibiotics for 2 days may have early cholecystitis Objective Vitals Vital Signs Date Time Temp Pulse Resp B/P (MAP) Pulse Ox O2 Delivery O2 Flow Rate FiO2 08/07/17 13:19 97 20 136/88 (104) 96 08/07/17 11:46 111 20 144/107 (119) 96 08/07/17 11:37 97.4 112 18 142/96 (111) 96 08/07/17 10:45 113 22 141/102 (115) 99 08/07/17 08:00 98.2 112 18 153/95 (114) 97 08/07/17 04:00 97.4 109 20 164/91 (115) 96 08/07/17 04:00 108 08/07/17 02:15 128/87 (101) 08/07/17 00:00 98 08/07/17 00:00 99.7 109 20 150/73 (98) 98 08/06/17 20:25 98 08/06/17 20:00 98.0 128 20 154/89 (110) 97 08/06/17 16:22 97.3 92 19 141/93 (109) 97 I/O 08/06/17 08/06/17 08/06/17 08/07/17 08/07/17 08/07/17 07:00 15:00 23:00 07:00 15:00 23:00 Intake Total 1400 ml 120 ml Output Total 300 ml Balance 1100 ml 120 ml Intake Oral 400 ml 120 ml IV Total 1000 ml Output Urine Total 300 ml # Voids 2 2 1 2 # Bowel Movements 2 1 1 1 Result Diagram: 08/05/17 1120 08/06/17 0936 Imaging Last Impressions Chest X-Ray 08/07/17 0000 Signed Impressions: Service Date/Time: Monday, August 07, 2017 11:43 - CONCLUSION: 1. Mild basilar airspace disease with small effusions. Differential diagnosis includes pulmonary edema. Cannot exclude infection. Bharath Burns MD Abdomen X-Ray 08/05/17 0000 Signed Impressions: Service Date/Time: Saturday, August 05, 2017 14:29 - CONCLUSION: Normal examination. Caleb Coronado MD Abdomen Ultrasound 08/05/17 0000 Signed Impressions: Service Date/Time: Saturday, August 05, 2017 20:07 - CONCLUSION: 1. No acute finding is identified to explain the abdominal pain. There are stones within the gallbladder but no signs of acute gallbladder inflammation are present. 2. Bilateral kidney lesions have features suggesting cysts. Akil Shelby MD Pelvis X-Ray 08/02/171328 Signed Impressions: Service Date/Time: July 14:41 - CONCLUSION: No acute disease. Kristopher Go MD Knee X-Ray 08/02/171328 Signed Impressions: Service Date/Time: July 14:44 - CONCLUSION: Advanced arthropathy without evidence of acute fracture or joint effusion. Kristopher Go MD Head CT 08/02/171328 Signed Impressions: Service Date/Time: July 14:18 - CONCLUSION: Small wedge-shaped hypodensity in the right parietal lobe which may represent acute to subacute infarct. No evidence of acute hemorrhage or edema. Otherwise normal exam. Kristopher Go MD Head Magnetic Resonance Angiography 08/02/17 0000 Signed Impressions: Service Date/Time: July 19:01 - CONCLUSION: 1. 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 Exam degraded by motion. Bharath Burns MD Carotid Artery Ultrasound 08/02/17 0000 Signed Impressions: Service Date/Time: July 22:09 - CONCLUSION: 1. Mild plaque without hemodynamically significant stenosis in the carotid arteries. Vertebral artery flow antegrade. Bharath Burns MD Brain MRI 08/02/17 0000 Signed Impressions: Service Date/Time: July 19:01 - CONCLUSION: 1. 2 small infarcts in the right parieto-occipital region with measurements given above. No hemorrhage or significant mass effect and mild white matter ischemic changes. Bharath Burns MD Objective Remarks GENERAL: sitting on recliner, pleasantly confused ENT: Airway patent. NECK: Trachea midline. CARDIOVASCULAR: Irregularly irregular RESPIRATORY: Decreased breath sounds equal bilaterally. No wheezes GASTROINTESTINAL: Abdomen soft, no RUQ tenderness, nondistended. No guarding. MUSCULOSKELETAL: Extremities without edema. No calf tenderness. NEUROLOGICAL: Awake and alert. Normal speech although she is confused. Procedures NOne A/P Problem List: (1) CVA (cerebral vascular accident) ICD Code: I63.9 - Cerebral infarction, unspecified Status: Acute Assessment and Plan [place] CVA. Brain MRI showing 2 small infarcts in the right parieto-occipital region. No hemorrhage. No mass effect. MRA shows occlusion/high grade stenosis of distal r post cerebral art. EF 40-45%. on TELE. neurology following. speech therapy following. rehab medicine following. PT also following and recommend rehab. CM assisting w d/c planning. LDL 61. Switch to Eliquis 2/2 new onset fib new onset Fib RVR. TSH and EF ok. Cardizem 20 mg IV x 1. Drip prn. Increase BB Shortness of breath secondary to A. fib. Chest x-ray shows pulmonary edema secondary to RVR. Lasix 40 mg IV 1. Oxygen and nebs as needed Abdominal pain: RUQ tenderness. + BM. US with gallstones. No pain or tenderness today. Discussed with general surgery recommended 2 days of p.o. antibiotics for possible early cholecystitis elevated Trop: discussed w Dr. Suggs and for now continue conservative management. no intervention HTN: BP elevated. Beta-maximino increased and Lasix restarted DVt proph: SCD. Discharge Planning Possible discharge to rehab in the morning Daryl Singh MD Aug 07, 2017 15:01
[2017-08-07] MEDS ORDERED: AUGM500T7 PO (15:04)
[2017-08-07] MEDS ORDERED: APIX5TAB PO (15:04)
--- NOTE | 2017-08-07 15:04 | HHI.DCPOC ---
Discharge Care Plan Diagnosis: (1) CVA (cerebral vascular accident) Your Health Problems Are: Difficulty with ADL Exercise Tolerance Goals to Promote Your Health * To prevent worsening of your condition and complications * To maintain your health at the optimal level Directions to Meet Your Goals Take your medications as prescribed Follow your dietary instruction Follow activity as directed Keep your appointments as scheduled Take your immunizations and boosters as scheduled If your symptoms worsen call your PCP, if no PCP go to Urgent Care Center or Emergency Room Smoking is Dangerous to Your Health. Avoid second hand smoke Call the 24-hour hour crisis hotline for domestic abuse at Daryl Singh MD Aug 07, 2017 15:04
[2017-08-07] MEDS: APIXABAN 5 MG TABLET PO SCH (20:45)
[2017-08-07] MEDS: PREGABALIN 75 MG CAP PO SCH (20:45)
[2017-08-07] MEDS ORDERED: traZODone HCL 50 MG TAB PO SCH (21:00)
--- NOTE | 2017-08-07 21:31 | HHI.PR ---
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 Diagnosis/Plan: Subjective Subjective Comments Pt found to have intermittent atrial fibrillation Active Medications Current Medications Medications (Trade) Dose Ordered Sig/[place] Route Start Time Stop Time Status Last Admin (Vasotec Inj) 1.25 mg Q4H PRN IV PUSH 08/02/17 17:15 (Trandate Inj) 10 mg Q2H PRN IV PUSH 08/02/17 17:15 (Heparin Inj) 5,000 units Q8H SQ 08/02/17 17:15 Future Hold 08/02/17 17:23 (Tylenol) 650 mg Q4H PRN PO 08/02/17 19:00 08/05/17 03:37 (Zofran Inj) 4 mg Q6H PRN IVP 08/02/17 19:00 08/05/17 10:44 (Narcan Inj) 0.4 mg UNSCH PRN IV PUSH 08/02/17 19:00 (Nan-Colace) 1 tab BID PO 08/02/17 21:00 08/07/17 20:45 (Milk Of Magnesia Liq) 30 ml Q12H PRN PO 08/02/17 19:00 (Senokot) 17.2 mg Q12H PRN PO 08/02/17 19:00 (Nitrostat Sl) 0.4 mg Q5M PRN SL 08/03/17 08:30 (Morphine Inj) 1 mg Q30M PRN IV PUSH 08/03/17 08:30 (NS Flush) 2 ml BID IV FLUSH 08/03/17 21:00 08/07/17 20:45 (NS Flush) 2 ml UNSCH PRN IV FLUSH 08/03/17 18:30 ([place] 5-325 Mg) 1 tab Q6H PRN PO 08/05/17 17:00 08/05/17 21:34 (Albuterol Neb) 2.5 mg Q2HR NEB PRN NEB 08/06/17 16:00 (Lopressor) 25 mg Q8HR PO 08/07/17 14:00 08/07/17 20:45 Diltiazem HCl 125 mg/Sodium Chloride 125 ml @ 5 mls/hr TITRATE PRN IV 08/07/17 10:30 (Eliquis) 5 mg BID PO 08/07/17 21:00 08/07/17 20:45 (Lyrica) 75 mg BID PO 08/07/17 21:00 08/07/17 20:45 (Desyrel) 50 mg HS PO 08/07/17 21:00 08/07/17 20:45 (Lasix) 20 mg DAILY PO 08/08/17 09:00 (KCl) 10 meq DAILY PO 08/08/17 09:00 Allergies Allergies Coded Allergies No Known Allergies (Unverified08/02/17) Exam I&O / VS 08/07/17 08/07/17 08/08/17 15:00 23:00 07:00 Intake Total 120 ml Output Total 500 ml Balance -380 ml Intake Oral 120 ml Output Urine Total 500 ml # Voids 5 # Bowel Movements 1 Vital Signs Date Time Temp Pulse Resp B/P (MAP) Pulse Ox O2 Delivery O2 Flow Rate FiO2 08/07/17 21:02 98.1 105 18 151/88 (109) 96 08/07/17 17:33 98 08/07/17 16:21 97.4 84 18 121/81 (94) 99 08/07/17 13:19 97 20 136/88 (104) 96 08/07/17 13:00 127 08/07/17 11:46 111 20 144/107 (119) 96 08/07/17 11:37 97.4 112 18 142/96 (111) 96 08/07/17 10:45 113 22 141/102 (115) 99 08/07/17 10:00 105 08/07/17 08:00 98.2 112 18 153/95 (114) 97 08/07/17 04:00 97.4 109 20 164/91 (115) 96 08/07/17 04:00 108 08/07/17 02:15 128/87 (101) 08/07/17 00:00 98 08/07/17 00:00 99.7 109 20 150/73 (98) 98 Exam Comments alert, disoriented, very confused. Able to follow simple commands only Cn intact MOTOR--5/5 BUE Objective Micro and Labs Date/Time Source Procedure Growth Status 08/02/17 14:05 Blood Peripheral Aerobic Blood Culture - Final NO GROWTH IN 5 DAYS Complete 08/02/17 14:05 Blood Peripheral Anaerobic Blood Culture - Final NO GROWTH IN 5 DAYS Complete Rosas Ji MD PhD Aug 07, 2017 21:31
[2017-08-08] VITALS (8 sets, daily range): BP systolic 105–135; BP diastolic 64–84; PULSE 89–110; RESP 18–20; TEMP 97.3–99.3; O2SAT 95–98
[2017-08-08] MEDS ORDERED: POTASSIUM CHLORIDE 10 MEQ CAP PO SCH (09:00)
[2017-08-08] MEDS ORDERED: FUROSEMIDE 20 MG TAB PO SCH (09:00)
[2017-08-08] MEDS ORDERED: METOPROLOL TARTRATE 25 MG TAB PO SCH (09:00)
[2017-08-08] MEDS: DOCUSATE SODIUM 50 MG/SENNA 8.6 MG TAB PO SCH (09:11)
[2017-08-08] MEDS: PREGABALIN 75 MG CAP PO SCH (09:11)
[2017-08-08] MEDS: APIXABAN 5 MG TABLET PO SCH (09:11)
[2017-08-08] MEDS: SODIUM CHLORIDE 0.9% FLUSH 10 ML FLUSH IV FLUSH SCH (09:12)
[2017-08-08 09:19] LABS: AUTOMATED NEUTROPHIL # 5.2 TH/MM3 (1.8-7.7); BASOPHIL % 0.5 % (0.0-2.0); EOSINOPHIL # 0.1 TH/MM3 (0-0.4); HEMATOCRIT 38.7 % (35.0-46.0); HEMOGLOBIN 12.9 GM/DL (11.6-15.3); LYMPH % 26.8 % (9.0-44.0); LYMPHOCYTE # 2.1 TH/MM3 (1.0-4.8); MEAN CELL VOLUME 94.3 FL (80.0-100.0); MEAN CORPUSCULAR HEMOGLOBIN 31.5 PG (27.0-34.0); MEAN CORPUSCULAR HGB CONC 33.4 % (32.0-36.0); MEAN PLATELET VOLUME 10.3 FL (7.0-11.0); MONO % 4.8 % (0.0-8.0); MONOCYTE # 0.4 TH/MM3 (0-0.9); NEUT % 66.9 % (16.0-70.0); PLATELET COUNT 216 TH/MM3 (150-450); RED CELL DISTRIBUTION WIDTH 14.1 % (11.6-17.2); WHITE BLOOD COUNT 7.7 TH/MM3 (4.0-11.0)
[2017-08-08 09:49] LABS: CALCIUM 9.7 MG/DL (8.5-10.1); CREATININE 1.16 MG/DL (0.50-1.00); MAGNESIUM 2.1 MG/DL (1.5-2.5)
[2017-08-08] MEDS ORDERED: METO25TA3 PO (12:53)
--- NOTE | 2017-08-08 12:57 | HHI.DS ---
Discharge Summary Admission Date Aug 03, 2017 at 10:23 Discharge Date: Aug 08, 2017 Admitting Diagnosis Acute stroke/altered mental status/elevated troponin (1) CVA (cerebral vascular accident) ICD Code: I63.9 - Cerebral infarction, unspecified Diagnosis: Principal Status: Acute Procedures NOne Brief History - From Admission History from ER physician notes, and review of medical records. And nursing staff at the bedside. Patient is extremely poor historian. She answered yes to pretty much all the review of system. She initially told her nurse on medical floors that she was having pain in her head. Later when I ask her about this, she denies any pain. She then told me that she was having pain in her abdomen. However later she changed her mind and she states she is not sure. According to ER notes, patient and her lives at an assisted living facility. She had a fall and was looking disoriented. They were not sure how long she was down on the floor. Patient also is not following commands and neuro exam was extremely limited in ER. However further imaging workup done in ER revealed small wedge-shaped hypodensity in the right parietal lobe which may represent acute to subacute infarct. Patient was therefore admitted for workup of CVA. In the emergency room, patient also had mild elevation of troponin. CBC/BMP: 08/08/17 0837 08/08/17 0837 Significant Findings Laboratory Tests Test 08/06/17 09:36 08/08/17 08:37 Blood Urea Nitrogen 20 MG/DL (7-18) 28 MG/DL (7-18) Creatinine 1.02 MG/DL (0.50-1.00) 1.16 MG/DL (0.50-1.00) Random Glucose 144 MG/DL (74-106) 113 MG/DL (74-106) Albumin 3.0 GM/DL (3.4-5.0) Chloride Level 111 MEQ/L (98-107) 110 MEQ/L (98-107) Estimat Glomerular Filtration Rate 51 ML/MIN (>89) 44 ML/MIN (>89) Imaging Last Impressions Chest X-Ray 08/07/17 0000 Signed Impressions: Service Date/Time: Monday, August 07, 2017 11:43 - CONCLUSION: 1. Mild basilar airspace disease with small effusions. Differential diagnosis includes pulmonary edema. Cannot exclude infection. Bharath Burns MD Abdomen X-Ray 08/05/17 0000 Signed Impressions: Service Date/Time: Saturday, August 05, 2017 14:29 - CONCLUSION: Normal examination. Caleb Coronado MD Abdomen Ultrasound 08/05/17 0000 Signed Impressions: Service Date/Time: Saturday, August 05, 2017 20:07 - CONCLUSION: 1. No acute finding is identified to explain the abdominal pain. There are stones within the gallbladder but no signs of acute gallbladder inflammation are present. 2. Bilateral kidney lesions have features suggesting cysts. Akil Shelby MD Pelvis X-Ray [id number]/[id number] Signed Impressions: Service Date/Time: July 14:41 - CONCLUSION: No acute disease. Kristopher Go MD Knee X-Ray [id number]/[id number] Signed Impressions: Service Date/Time: July 14:44 - CONCLUSION: Advanced arthropathy without evidence of acute fracture or joint effusion. Kristopher Go MD Head CT [id number] Signed Impressions: Service Date/Time: July 14:18 - CONCLUSION: Small wedge-shaped hypodensity in the right parietal lobe which may represent acute to subacute infarct. No evidence of acute hemorrhage or edema. Otherwise normal exam. Kristopher Go MD Head Magnetic Resonance Angiography 08/02/17 Signed Impressions: Service Date/Time: July 19:01 - CONCLUSION: 1. 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 Exam degraded by motion. Bharath Burns MD Carotid Artery Ultrasound 08/02/17 0000 Signed Impressions: Service Date/Time: July 22:09 - CONCLUSION: 1. Mild plaque without hemodynamically significant stenosis in the carotid arteries. Vertebral artery flow antegrade. Bharath Burns MD Brain MRI 08/02/17 0000 Signed Impressions: Service Date/Time: July 19:01 - CONCLUSION: 1. 2 small infarcts in the right parieto-occipital region with measurements given above. No hemorrhage or significant mass effect and mild white matter ischemic changes. Bharath Burns MD PE at Discharge GENERAL: sitting on recliner, pleasantly confused ENT: Airway patent. NECK: Trachea midline. CARDIOVASCULAR: Irregularly irregular RESPIRATORY: Decreased breath sounds equal bilaterally. No wheezes GASTROINTESTINAL: Abdomen soft, no RUQ tenderness, nondistended. No guarding. MUSCULOSKELETAL: Extremities without edema. No calf tenderness. NEUROLOGICAL: Awake and alert. Normal speech although she is confused. Hospital Course Embolic CVA. Brain MRI showing 2 small infarcts in the right parieto-occipital region. No hemorrhage. No mass effect. MRA shows occlusion/high grade stenosis of distal r post cerebral art. EF 40-45%. on TELE. neurology following. speech therapy following. rehab medicine following. PT also following and recommend rehab. CM assisting w d/c planning. LDL 61. Switched to Eliquis 2/2 new onset fib. She is clinically stable new onset Fib RVR. TSH and EF ok. Now CVR on beta-maximino Shortness of breath secondary to A. fib. Chest x-ray shows pulmonary edema secondary to RVR. Improved status post Lasix 40 mg IV 1. Oxygen and nebs as needed Abdominal pain: RUQ tenderness. + BM. US with gallstones. No pain or tenderness. Discussed with general surgery recommended 2 days of p.o. antibiotics for possible early cholecystitis elevated Trop: discussed w Dr. Suggs and for now continue conservative management. no intervention HTN: BP elevated. Beta-maximino increased and Lasix restarted with improved BP reading DVt proph: SCD. Pt Condition on Discharge: Stable Discharge Disposition: Discharge to SNF Discharge Time: > 30 minutes Discharge Instructions DIET: Follow Instructions for: Heart Healthy Diet Speech Therapy-Diet Recommends: Mechanical Soft Activities you can perform: Regular-No Restrictions Activities to Avoid: Driving Follow up Referrals: Cardiology - 1 Week Neurology - 2 Weeks PCP Follow-up - 1 Week New Orders: BASIC METABOLIC PROF - 08/13/17 New Medications: Apixaban (Eliquis) 5 Mg Tab 5 MG PO BID for Prevent Blood Clot, #60 TAB Metoprolol Tartrate (Metoprolol Tartrate) 25 Mg Tab 50 MG PO BID for Regulate Heart Beat, #60 TAB Changed Medications: Amoxicillin-Clavulanate (Augmentin) 500-125 mg Tab 500 MG PO TID for Infection, #3 TAB 0 Refills (Changed from: BID) Continued Medications: Furosemide (Furosemide) 20 Mg Tab 20 MG PO DAILY, #30 TAB 0 Refills Potassium Chloride ER (Potassium Chloride ER) 10 Meq Cap 10 MEQ PO DAILY for Electrolyte Replacement, #30 CAP 0 Refills Pregabalin (Lyrica) 75 Mg Cap 75 MG PO BID, #60 CAP 0 Refills Trazodone (Trazodone) 50 Mg Tab 50 MG PO HS for Control Depression, #30 TAB 0 Refills Discontinued Medications: Aspirin (Aspirin) 81 Mg Chew 81 MG CHEW DAILY, TAB 0 Refills Dextromethorphan-Guaifenesin (Mucinex DM) 30-600 Mg Tab 1 TAB PO BID PRN for CHEST CONGESTION AND/OR COUGH, TAB 0 Refills Dextromethorphan-Guaifenesin (Robitussin Cough Chest Congestion) 10-200 Mg Cap 1 CAP PO Q6H PRN for CHEST CONGESTION AND/OR COUGH, CAP 0 Refills Losartan (Losartan) 100 Mg Tab 100 MG PO DAILY for Blood Pressure Management, #30 TAB 0 Refills Nitrofurantoin Monohydrate Macrocrystals (Macrobid) 100 Mg Cap 100 MG PO BID for Infection, CAP 0 Refills Daryl Singh MD Aug 08, 2017 12:57
--- NOTE | 2017-08-08 15:39 | PD.CARD.PN ---
Subjective Subjective Remarks No CP or SOB, confused but more active Objective Medications Current Medications Medications (Trade) Dose Ordered Sig/[place] Route Start Time Stop Time Status Last Admin (Vasotec Inj) 1.25 mg Q4H PRN IV PUSH 08/02/17 17:15 (Trandate Inj) 10 mg Q2H PRN IV PUSH 08/02/17 17:15 (Heparin Inj) 5,000 units Q8H SQ 08/02/17 17:15 Future Hold 08/02/17 17:23 (Tylenol) 650 mg Q4H PRN PO 08/02/17 19:00 08/05/17 03:37 (Zofran Inj) 4 mg Q6H PRN IVP 08/02/17 19:00 08/05/17 10:44 (Narcan Inj) 0.4 mg UNSCH PRN IV PUSH 08/02/17 19:00 (Nan-Colace) 1 tab BID PO 08/02/17 21:00 08/08/17 09:11 (Milk Of Magnesia Liq) 30 ml Q12H PRN PO 08/02/17 19:00 (Senokot) 17.2 mg Q12H PRN PO 08/02/17 19:00 (Nitrostat Sl) 0.4 mg Q5M PRN SL 08/03/17 08:30 (Morphine Inj) 1 mg Q30M PRN IV PUSH 08/03/17 08:30 (NS Flush) 2 ml BID IV FLUSH 08/03/17 21:00 08/08/17 09:12 (NS Flush) 2 ml UNSCH PRN IV FLUSH 08/03/17 18:30 ([place] 5-325 Mg) 1 tab Q6H PRN PO 08/05/17 17:00 08/05/17 21:34 (Albuterol Neb) 2.5 mg Q2HR NEB PRN NEB 08/06/17 16:00 Diltiazem HCl 125 mg/Sodium Chloride 125 ml @ 5 mls/hr TITRATE PRN IV 08/07/17 10:30 (Eliquis) 5 mg BID PO 08/07/17 21:00 08/08/17 09:11 (Lyrica) 75 mg BID PO 08/07/17 21:00 08/08/17 09:11 (Desyrel) 50 mg HS PO 08/07/17 21:00 08/07/17 20:45 (Lasix) 20 mg DAILY PO 08/08/17 09:00 08/08/17 09:11 (KCl) 10 meq DAILY PO 08/08/17 09:00 08/08/17 09:17 (Lopressor) 50 mg BID PO 08/08/17 09:00 08/08/17 09:11 Vital Signs / I&O Vital Signs Date Time Temp Pulse Resp B/P (MAP) Pulse Ox O2 Delivery O2 Flow Rate FiO2 08/08/17 12:12 98 08/08/17 12:00 89 08/08/17 11:58 97.4 96 18 135/82 (99) 98 08/08/17 10:36 18 08/08/17 07:59 97.5 96 18 133/84 (100) 96 08/08/17 05:09 97.7 95 18 105/64 (78) 98 08/08/17 01:09 97.3 110 18 125/72 (89) 96 08/08/17 01:06 97.3 110 18 125/72 (89) 96 08/07/17 21:02 98.1 105 18 151/88 (109) 96 08/07/17 19:59 130 08/07/17 17:33 98 08/07/17 16:21 97.4 84 18 121/81 (94) 99 I/O 08/07/17 08/07/17 08/07/17 08/08/17 08/08/17 08/08/17 07:00 15:00 23:00 07:00 15:00 23:00 Intake Total 120 ml 720 ml Output Total 500 ml Balance -380 ml 720 ml Intake Oral 120 ml 720 ml Output Urine Total 500 ml # Voids 2 5 2 3 # Bowel Movements 1 1 1 Physical Exam GENERAL: In NAD SKIN: Warm and dry. HEAD: Normocephalic. EYES: No scleral icterus. No injection or drainage. NECK: Supple, trachea midline. No JVD or lymphadenopathy. CARDIOVASCULAR: Regular rate and rhythm without murmurs, gallops, or rubs. RESPIRATORY: Breath sounds equal bilaterally. No accessory muscle use. GASTROINTESTINAL: Abdomen soft, non-tender, nondistended. MUSCULOSKELETAL: No cyanosis, or edema. Laboratory Laboratory Tests Test 08/08/17 08:37 White Blood Count 7.7 TH/MM3 Red Blood Count 4.10 MIL/MM3 Hemoglobin 12.9 GM/DL Hematocrit 38.7 % Mean Corpuscular Volume 94.3 FL Mean Corpuscular Hemoglobin 31.5 PG Mean Corpuscular Hemoglobin Concent 33.4 % Red Cell Distribution Width 14.1 % Platelet Count 216 TH/MM3 Mean Platelet Volume 10.3 FL Neutrophils (%) (Auto) 66.9 % Lymphocytes (%) (Auto) 26.8 % Monocytes (%) (Auto) 4.8 % Eosinophils (%) (Auto) 1.0 % Basophils (%) (Auto) 0.5 % Neutrophils # (Auto) 5.2 TH/MM3 Lymphocytes # (Auto) 2.1 TH/MM3 Monocytes # (Auto) 0.4 TH/MM3 Eosinophils # (Auto) 0.1 TH/MM3 Basophils # (Auto) 0.0 TH/MM3 CBC Comment DIFF FINAL Differential Comment Blood Urea Nitrogen 28 MG/DL Creatinine 1.16 MG/DL Random Glucose 113 MG/DL Calcium Level 9.7 MG/DL Magnesium Level 2.1 MG/DL Sodium Level 141 MEQ/L Potassium Level 3.9 MEQ/L Chloride Level 110 MEQ/L Carbon Dioxide Level 22.0 MEQ/L Anion Gap 9 MEQ/L Estimat Glomerular Filtration Rate 44 ML/MIN Assessment and Plan Problem List: (1) CVA (cerebral vascular accident) ICD Codes: I63.9 - Cerebral infarction, unspecified Status: Acute (2) Elevated troponin ICD Codes: R74.8 - Abnormal levels of other serum enzymes Status: Acute (3) Cardiomyopathy ICD Codes: I42.9 - Cardiomyopathy, unspecified (4) HTN (hypertension) ICD Codes: I10 - Essential (primary) hypertension (5) Altered mental status ICD Codes: R41.82 - Altered mental status, unspecified Status: Acute (6) Confusion ICD Codes: R41.0 - Disorientation, unspecified Assessment and Plan No angina or CHF. Remains very confused, has severe dementia. Echo with mild LV dysfunction with distal and AA hypokinesis. Continue current program including cardiac risk factor modification. Continue tx for CHF. Increase activity, PT. Quadrat,Carrillo LEON Aug 08, 2017 15:39
--- NOTE | 2017-08-08 17:14 | HHI.HCPN ---
Reason for visit a. To assist with evaluation and management of symptoms including: Pain, confusion b. To assist medical decision maker(s) with: better understanding of current medical conditions; weighing benefits/burdens of medical treatment options; making medical treatment decisions. Subjective/Interval History She is seen today to follow-up on symptom management and goals of care. She is currently working with physical therapy. They continue to recommend short-term rehabilitation prior to return to assisted living facility. Patient demonstrates easy fatigability and requires considerable rest between each bout of ambulation. Distance improving from prior evaluation. She continues to have difficulty with memory and cannot remember where she lives, where her is, or if he lives with her. She reorients with cueing. Her heart rate is improved today. She remains in atrial fibrillation. She has been cleared by neurology for the initiation of Eliquis due to recent CVA and paroxysmal atrial fibrillation. Her speech is more clear today. Per my discussion with Dr. Singh, she has been cleared for discharge to rehab today. . Family/friend interactions Was contacted by the daughter around 10 AM for update on discharge plans and after discussion with Dr. Singh and evaluation of the patient, I returned her call to discuss discharge plans for later today and clinical findings. Daughter did state that for the first time, her mother was able to remember her granddaughter's name. Plan to pursue short-term rehabilitation with hopeful return back to the [facility] if patient makes appropriate progress. . Advance Directives Living Will: Copy in medical record Health Care Surrogate: Copy in medical record Durable Power of Information Services Tech: Copy in medical record Advance Directive Specifics Health Care Surrogate(s): Their daughterBrisa is their healthcare surrogate and POA. . Documented care wishes: Standard Living Will verbiage. . Objective Vital Signs Date Time Temp Pulse Resp B/P (MAP) Pulse Ox O2 Delivery O2 Flow Rate FiO2 08/08/17 15:42 99.3 96 20 111/69 (83) 95 08/08/17 12:12 98 08/08/17 12:00 89 08/08/17 11:58 97.4 96 18 135/82 (99) 98 08/08/17 10:36 18 08/08/17 07:59 97.5 96 18 133/84 (100) 96 08/08/17 05:09 97.7 95 18 105/64 (78) 98 08/08/17 01:09 97.3 110 18 125/72 (89) 96 08/08/17 01:06 97.3 110 18 125/72 (89) 96 08/07/17 21:02 98.1 105 18 151/88 (109) 96 08/07/17 19:59 130 08/07/17 17:33 98 Intake & Output 08/08/17 08/08/17 06:59 18:59 Intake Total 120 ml 720 ml Output Total 500 ml Balance -380 ml 720 ml Intake Oral 120 ml 720 ml Output Urine Total 500 ml # Voids 4 3 # Bowel Movements 1 Physical Exam CONSTITUTIONAL/GENERAL: This is an adequately nourished patient, in no apparent distress. TUBES/LINES/DRAINS: PIV LFA SKIN: No jaundice, rashes, or lesions. Ecchymoses on upper extremities. No wounds seen anteriorly. Skin temperature appropriate. Not diaphoretic. HEAD: Atraumatic. Normocephalic. EYES: Pupils equal and round and reactive. Extraocular motions intact. No scleral icterus. No injection or drainage. Fundi not examined. ENT: Hearing grossly normal. Nose without bleeding or purulent drainage. Throat without visible erythema, exudates, masses, or lesions. NECK: Trachea midline. Supple, nontender. No palpable thyroid enlargement or nodularity. CARDIOVASCULAR: S1, S2, irregular rhythm, intermittently tachycardic rate, no rub murmur or gallop. RESPIRATORY/CHEST: Symmetric, unlabored respirations. Clear to auscultation. Breath sounds equal bilaterally. No wheezes, rales, or rhonchi. GASTROINTESTINAL: Abdomen soft, non-tender, nondistended. No hepato-splenomegaly , or palpable masses. No guarding. Bowel sounds present. GENITOURINARY: Without palpable bladder distension. MUSCULOSKELETAL: Extremities without clubbing, cyanosis, or edema. No joint tenderness or effusion noted. No calf tenderness. No mottling or clubbing. NEUROLOGICAL: Awake and alert. Speech clear today with some delay in replying. Right mouth droop noted. Some remote memory deficit noted. PSYCHIATRIC: Calm, cooperative. . Diagnostic Tests Laboratory Laboratory Tests Test 08/06/17 09:36 08/08/17 08:37 Blood Urea Nitrogen 20 MG/DL (7-18) 28 MG/DL (7-18) Creatinine 1.02 MG/DL (0.50-1.00) 1.16 MG/DL (0.50-1.00) Random Glucose 144 MG/DL (74-106) 113 MG/DL (74-106) Total Protein 7.5 GM/DL (6.4-8.2) Albumin 3.0 GM/DL (3.4-5.0) Calcium Level 8.9 MG/DL (8.5-10.1) 9.7 MG/DL (8.5-10.1) Alkaline Phosphatase 100 U/L (45-117) Aspartate Amino Transf (AST/SGOT) 30 U/L (15-37) Alanine Aminotransferase (ALT/SGPT) 36 U/L (10-53) Total Bilirubin 0.5 MG/DL (0.2-1.0) Sodium Level 141 MEQ/L (136-145) 141 MEQ/L (136-145) Potassium Level 3.9 MEQ/L (3.5-5.1) 3.9 MEQ/L (3.5-5.1) Chloride Level 111 MEQ/L (98-107) 110 MEQ/L (98-107) Carbon Dioxide Level 22.3 MEQ/L (21.0-32.0) 22.0 MEQ/L (21.0-32.0) Anion Gap 8 MEQ/L (5-15) 9 MEQ/L (5-15) Estimat Glomerular Filtration Rate 51 ML/MIN (>89) 44 ML/MIN (>89) White Blood Count 7.7 TH/MM3 (4.0-11.0) Red Blood Count 4.10 MIL/MM3 (4.00-5.30) Hemoglobin 12.9 GM/DL (11.6-15.3) Hematocrit 38.7 % (35.0-46.0) Mean Corpuscular Volume 94.3 FL (80.0-100.0) Mean Corpuscular Hemoglobin 31.5 PG (27.0-34.0) Mean Corpuscular Hemoglobin Concent 33.4 % (32.0-36.0) Red Cell Distribution Width 14.1 % (11.6-17.2) Platelet Count 216 TH/MM3 (150-450) Mean Platelet Volume 10.3 FL (7.0-11.0) Neutrophils (%) (Auto) 66.9 % (16.0-70.0) Lymphocytes (%) (Auto) 26.8 % (9.0-44.0) Monocytes (%) (Auto) 4.8 % (0.0-8.0) Eosinophils (%) (Auto) 1.0 % (0.0-4.0) Basophils (%) (Auto) 0.5 % (0.0-2.0) Neutrophils # (Auto) 5.2 TH/MM3 (1.8-7.7) Lymphocytes # (Auto) 2.1 TH/MM3 (1.0-4.8) Monocytes # (Auto) 0.4 TH/MM3 (0-0.9) Eosinophils # (Auto) 0.1 TH/MM3 (0-0.4) Basophils # (Auto) 0.0 TH/MM3 (0-0.2) CBC Comment DIFF FINAL Differential Comment Magnesium Level 2.1 MG/DL (1.5-2.5) . Result Diagram: 08/08/17 0837 08/08/17 0837 Microbiology Microbiology Date/Time Source Procedure Growth Status 08/02/17 14:05 Blood Peripheral Aerobic Blood Culture - Final NO GROWTH IN 5 DAYS Complete 08/02/17 14:05 Blood Peripheral Anaerobic Blood Culture - Final NO GROWTH IN 5 DAYS Complete . Imaging Last Impressions Chest X-Ray 08/07/17 0000 Signed Impressions: Service Date/Time: Monday, August 07, 2017 11:43 - CONCLUSION: 1. Mild basilar airspace disease with small effusions. Differential diagnosis includes pulmonary edema. Cannot exclude infection. Bharath Burns MD Abdomen X-Ray 08/05/17 0000 Signed Impressions: Service Date/Time: Saturday, August 05, 2017 14:29 - CONCLUSION: Normal examination. Caleb Coronado MD Abdomen Ultrasound 08/05/17 0000 Signed Impressions: Service Date/Time: Saturday, August 05, 2017 20:07 - CONCLUSION: 1. No acute finding is identified to explain the abdominal pain. There are stones within the gallbladder but no signs of acute gallbladder inflammation are present. 2. Bilateral kidney lesions have features suggesting cysts. Akil Shelby MD Pelvis X-Ray 08/02/17 6439 Signed Impressions: Service Date/Time: July 14:41 - CONCLUSION: No acute disease. Kristopher F. Abbi, MD Knee X-Ray 08/02/17 1329 Signed Impressions: Service Date/Time: July 14:44 - CONCLUSION: Advanced arthropathy without evidence of acute fracture or joint effusion. Kristopher Go MD Head CT 08/02/17 1329 Signed Impressions: Service Date/Time: July 14:18 - CONCLUSION: Small wedge-shaped hypodensity in the right parietal lobe which may represent acute to subacute infarct. No evidence of acute hemorrhage or edema. Otherwise normal exam. Kristopher Go MD Head Magnetic Resonance Angiography 08/02/17 0000 Signed Impressions: Service Date/Time: July 19:01 - CONCLUSION: 1. 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 Exam degraded by motion. Bharath Burns MD Carotid Artery Ultrasound 08/02/17 0000 Signed Impressions: Service Date/Time: July 22:09 - CONCLUSION: 1. Mild plaque without hemodynamically significant stenosis in the carotid arteries. Vertebral artery flow antegrade. Bharath Burns MD Brain MRI 08/02/17 0000 Signed Impressions: Service Date/Time: July 19:01 - CONCLUSION: 1. 2 small infarcts in the right parieto-occipital region with measurements given above. No hemorrhage or significant mass effect and mild white matter ischemic changes. Bharath Burns MD . Assessment and Plan Disease Oriented Problem List: (1) CVA (cerebral vascular accident) (2) Elevated troponin (3) Altered mental status Symptom Scale: (1) Confusion 0-10 Scale: Unable to quantify (Status post CVA right posterior cerebral artery.) (2) Pain, generalized 0-10 Scale: Unable to quantify (Confused, unable to specify area of discomfort but complains of pain.) Pertinent Non-Medical Issues Psychosocial:Born in [facility], 1 of 10 children. She finished school, and raised her children there. She has been to her for 70 years. 5 years ago they moved to [place] after [place] of [place]ing between both states. She and her currently live together in an [facility] Spiritual: Seventh-day V[employer]. Legal: Their daughter Brisa provided copies of the healthcare surrogate, living will and power of criminal defense attorney. Ethical issues impacting care: None noted. . Important Contacts Daughter: Brisa Newton Son: Marin Guerrero Son: Tobin Guerrero Son-in-law: Paul Austinjacquelinezachary . Prognosis Her prognosis is guarded. 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 Cardiology has seen her and recommended stopping the heparin drip and continue with aspirin. No cardiac intervention is planned. 2D echocardiogram shows an ejection fraction of 40-45 % with cornelia-apical and distal anteroseptal hypokinesis, moderately dilated atrium bilaterally, mild to moderate MR, mild TR and estimated pulmonary artery pressure of 51 mmHg.. She has passed her swallow evaluation but is having slight difficulty expressing her thoughts. Family is requesting a DO NOT RESUSCITATE status. She has been cleared by speech therapy and recommended to continue occupational and physical therapy at rehab. She has now developed atrial fibrillation with rapid ventricular response and will require rate modification medications and anticoagulation. . Code Status: No Code Plan PLAN: Legal decision maker: Daughter Brias is the healthcare surrogate and she is coordinating all decisions with her 2 brothers. Goals: Comfort oriented CODE STATUS: DNR SYMPTOMS: * Confusion: Appears slightly more confused today than yesterday. Unable to remember where she lives or where her lives. Remains with a slight delay before speaking. Her speech is improving and is able to make her needs known. * Pain: She had previously complained of right upper quadrant abdominal pain and general surgery was consulted but has signed off has abdominal pain was improving, no cause was found and family is refusing procedural intervention. At this time she has no discomfort. She has morphine and [place] available as needed. She has taken no pain medications in the last 24 hours. * Dyspnea: No complaint of dyspnea today. She remains in atrial fib by property assessment monitor, however heart rate is now controlled on increased beta blockade. She is ambulating with physical therapy, requires significant rest periods but is improving in the distance she is able to ambulate. Plan for discharge today to rehabilitation. Palliative care will continue to follow the patient during hospital course as condition evolves, to assist patient/decision-maker with understanding of their medical conditions, weighing benefits/burdens of treatment options, for clarification of goals of treatment. Additionally will assist with any symptoms of palliative concern. . Attestation To help prompt me to consider important information that might be impacting today's encounter and assessment, information from prior notes written by myself or my colleagues may have been "brought forward" into today's note. My signature on this note, however, is an attestation that I personally performed the exam, history, and/or decision-making noted today, and, unless otherwise indicated, the interactions with patient, family, and staff as well as the review of records all occurred today. I also attest that the listed assessment and stated plan reflect my best clinical judgment today based on the combination of historical information, prior notes, and today's exam/ interactions. When time spent is documented, it refers only to time spent today by the signer, or if indicated, combined time spent today by collaborating physician/nurse practitioner. . Payton Rae Aug 08, 2017 17:14
== END 2017-08-08 16:10 | DRG 65 ==
LOC: NEPC 13:19 → INTOOBSV 15:49 → NEDA 15:49 → N05B 18:07 → OBSVTOIN 08-03 10:23
PROVIDERS: ADMIT Internal Medicine; ATTEND Internal Medicine
DX: I63.431 Cerebral infarction due to embolism of right posterior cerebral artery (principal); I42.9 Cardiomyopathy, unspecified; I11.0 Hypertensive heart disease with heart failure; I50.9 Heart failure, unspecified; F03.90 Unspecified dementia, unspecified severity, without behavioral disturbance, psychotic disturbance, mood disturbance, and anxiety; I48.0 Paroxysmal atrial fibrillation; R47.01 Aphasia; I08.1 Rheumatic disorders of both mitral and tricuspid valves; I44.0 Atrioventricular block, first degree; K80.20 Calculus of gallbladder without cholecystitis without obstruction; R29.810 Facial weakness; J32.9 Chronic sinusitis, unspecified; R68.81 Early satiety; M19.90 Unspecified osteoarthritis, unspecified site; Z66 Do not resuscitate; Z78.1 Physical restraint status; Z82.3 Family history of stroke; Z82.49 Family history of ischemic heart disease and other diseases of the circulatory system; Z96.651 Presence of right artificial knee joint
CPT/HCPCS: 70450; 70544; 70551; 71045; 72170; 73560; 74018; 76700; 76937; 80048; 80053; 80061; 80076; 81001; 82140; 82550; 82948; 83036; 83605; 83690; 83735; 84443; 84484; 85025; 85610; 85730; 87040; 93005; 93225; 93226; 93306; 93880; 94640; 94664; 99285; C9113; G8996-GN; G8997-GN; J1644; J1940; J2405; J7030; J7613